=== PATIENT | female | born 1975 | race African-American/Black ===

== ENCOUNTER 2017-11-09 18:11 | Emergency (ER) | payer MEDICARE, MEDICAID ==
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
[2017-11-09] MEDS ORDERED: Ketorolac INJ* 60 MG/2 ML VIAL IM ONE (21:36)
[2017-11-09 21:58] VITALS: BP 112/65
== END 2017-11-09 22:00 | disposition home or self-care (01) ==
LOC: UCEAST 18:11
DX: L29.9 Pruritus, unspecified (principal); L85.3 Xerosis cutis; M54.42 Lumbago with sciatica, left side; R03.0 Elevated blood-pressure reading, without diagnosis of hypertension; Z88.0 Allergy status to penicillin; Z91.040 Latex allergy status; Z72.0 Tobacco use
CPT/HCPCS: 99212; G0463; J1885

== ENCOUNTER 2018-10-04 09:00 | Emergency (ER) | payer MEDICAID, MEDICARE ==
[2018-10-04 09:08] VITALS: BP 153/96
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
== END 2018-10-04 09:28 | disposition home or self-care (01) ==
LOC: ED 09:00
DX: M79.10 Myalgia, unspecified site (principal); G89.29 Other chronic pain; R51 Headache; M54.9 Dorsalgia, unspecified; M54.2 Cervicalgia; Z88.0 Allergy status to penicillin; E11.9 Type 2 diabetes mellitus without complications; Z72.0 Tobacco use
CPT/HCPCS: 99282

== ENCOUNTER 2019-03-04 23:42 | Emergency (ER) | payer MEDICARE, MEDICAID ==
[2019-03-05] MEDS ORDERED: Azithromycin TAB* 250 MG PO ONE (01:34)
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
[2019-03-05] MEDS ORDERED: Ibuprofen TAB* 600 MG PO ONE (01:39)
[2019-03-05 02:11] VITALS: BP 166/102
== END 2019-03-05 02:11 | disposition home or self-care (01) ==
LOC: ED 23:42
DX: J98.8 Other specified respiratory disorders (principal); R51 Headache; Z72.0 Tobacco use; E11.9 Type 2 diabetes mellitus without complications; Z88.0 Allergy status to penicillin
CPT/HCPCS: 99282; A9270-GY

== ENCOUNTER 2019-07-28 15:44 | Emergency (ER) | payer MEDICARE, MEDICAID ==
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
[2019-07-28 17:27] LABS: ABS Basophils 0.1 10^3/ul (0-0.2); ABS Eosinophils 0.2 10^3/ul (0-0.6); ABS Monocytes 0.5 10^3/ul (0-0.8); ABS Neutrophils 4.7 10^3/ul (1.5-7.7); Eosinophil % 2.1 %; Hematocrit 43 % (35-47); Hemoglobin 14.5 g/dL (12.0-16.0); Lymphocyte % 27.2 %; Mean Corpuscular HGB Conc 34 g/dL (31-36); Mean Corpuscular Hemoglobin 31 pg (27-31); Mean Corpuscular Volume 91 fL (80-97); Mean Platelet Volume 8.4 fL (7.4-10.4); Nucleated Red Blood Cells % 0.1; Platelet Count 300 10^3/uL (150-450); Red Blood Count 4.71 10^6 /uL (3.70-4.87); Red Cell Distribution Width 14 % (10-15); White Blood Count 7.5 10^3/uL (3.5-10.8)
[2019-07-28 17:45] LABS: Albumin 4.6 g/dL (3.2-5.2); Albumin/Globulin Ratio 1.3 (1-3); BUN/Creatinine Ratio 13.7 (8-20); Calcium 9.9 mg/dL (8.6-10.3); EGFR African American 103.9 (>60); EGFR Non-African American 85.8 (>60); Globulin 3.5 g/dL (2-4); Total Bilirubin 0.6 mg/dL (0.2-1.0); Total Protein 8.1 g/dL (6.4-8.9)
[2019-07-28 17:47] LABS: INR 1.02 (0.82-1.09)
[2019-07-28] MEDS ORDERED: Lisinopril TAB* 10 MG PO ONE (18:31)
[2019-07-28] MEDS ORDERED: oxyCODONE/Acetamin 5/325 MG* TAB PO ONE (18:31)
[2019-07-28 19:12] VITALS: BP 177/103
== END 2019-07-28 19:09 | disposition home or self-care (01) ==
LOC: ED 15:44
DX: M54.12 Radiculopathy, cervical region (principal); I10 Essential (primary) hypertension; E11.9 Type 2 diabetes mellitus without complications; F31.9 Bipolar disorder, unspecified; Z90.710 Acquired absence of both cervix and uterus; F17.290 Nicotine dependence, other tobacco product, uncomplicated; Z79.84 Long term (current) use of oral hypoglycemic drugs; Z79.899 Other long term (current) drug therapy; Z88.0 Allergy status to penicillin; Z91.040 Latex allergy status
CPT/HCPCS: 36415; 70450; 72125; 80053; 84484; 85025; 85610; 93005; 99283; A9270-GY

== ENCOUNTER 2020-03-11 13:48 | Inpatient (IN) ==
[2020-03-11] MEDS ORDERED: LORazepam 2 mg VIAL 1 ml ONE (13:51)
[2020-03-11] MEDS ORDERED: Lorazepam PYXIS KEY PRN (13:56)
[2020-03-11] MEDS ORDERED: LORazepam 2 mg VIAL 1 ml IM ONE (13:56)
[2020-03-11] MEDS ORDERED: Haloperidol 5 mg/ml SDV IV/IM 5 MG/ML AMP IM ONE (13:56)
[2020-03-11] MEDS ORDERED: diPHENhydraMINE IV 50 MG/ML 1 ml VIAL (BENADRYL) IM ONE (13:56)
[2020-03-11 15:02] LABS: ABS Basophils 0.1 10^3/ul (0-0.2); ABS Eosinophils 0.1 10^3/ul (0-0.6); ABS Lymphocytes 0.9 10^3/ul (1.0-4.8); ABS Monocytes 0.4 10^3/ul (0-0.8); Hematocrit 35 % (35-47); Hemoglobin 11.8 g/dL (12.0-16.0); Lymphocyte % 12.6 %; Mean Corpuscular HGB Conc 34 g/dL (31-36); Mean Corpuscular Hemoglobin 29 pg (27-31); Mean Corpuscular Volume 87 fL (80-97); Mean Platelet Volume 9.9 fL (7.4-10.4); Platelet Count 233 10^3/uL (150-450); Red Blood Count 4.02 10^6 /uL (3.70-4.87); Red Cell Distribution Width 12 % (10-15); White Blood Count 7.2 10^3/uL (3.5-10.8)
[2020-03-11 15:30] LABS: Acetaminophen < 15 mcg/mL; Alcohol, S < 10 mg/dL (<10)
[2020-03-11 15:31] LABS: ALT 40 U/L (7-52); AST 38 U/L (13-39); Albumin 3.9 g/dL (3.2-5.2); Albumin/Globulin Ratio 1.3 (1-3); Alkaline Phosphatase 72 U/L (34-104); Anion Gap 11 mmol/L (2-11); Blood Urea Nitrogen 21 mg/dL (6-24); CO2 Carbon Dioxide 23 mmol/L (22-32); Calcium 9.2 mg/dL (8.6-10.3); Chloride 100 mmol/L (101-111); EGFR African American 48.8 (>60); EGFR Non-African American 40.3 (>60); Globulin 2.9 g/dL (2-4); Glucose 414 mg/dL (70-100); Potassium 3.3 mmol/L (3.5-5.0); Sodium 134 mmol/L (135-145); Total Protein 6.8 g/dL (6.4-8.9); Troponin I 0.01 ng/mL (<0.03)
[2020-03-11 15:41] LABS: Salicylate < 15.00 mg/dL (<30)
[2020-03-11 15:44] LABS: TSH (Thyroid Stimulating Horm) 0.93 mcIU/mL (0.34-5.60)
[2020-03-11] MEDS ORDERED: NS 0.9% 1000 ml BAG 1,000 ML IV ONE (16:13)
[2020-03-11] MEDS ORDERED: Insulin REGULAR 100 unit/ml(*) SUBCUT ONE (16:41)
[2020-03-11 18:50] LABS: Urine Appearance Clear; Urine Bilirubin Negative (Negative); Urine Blood Negative (Negative); Urine Color Yellow; Urine Glucose 1+(50 mg/dL) (Negative); Urine Ketones Trace (Negative); Urine Nitrite Negative (Negative); Urine Protein Negative (Negative); Urine Specific Gravity 1.009 (1.010-1.030); Urine Urobilinogen Negative (Negative)
[2020-03-11 18:57] LABS: Urine Benzodiazepine Screen None Detected (None Detect); Urine Opiates Screen None Detected (None Detect)
[2020-03-12] MEDS ORDERED: chlorproMAZINE 25 MG/ML 2 ML (50 MG) IM ONE (04:39)
[2020-03-12] MEDS ORDERED: Al Hydrox/Mg Hydrox/Simet LIQ 30 ML UDC PO PRN (08:03)
[2020-03-12 10:22] LABS: Cholesterol 145 mg/dL; LDL Cholesterol 90 mg/dL; Triglycerides 61 mg/dL
[2020-03-12] MEDS: Vitamin THERAPEUTIC TAB PO SCH (11:05)
[2020-03-12] MEDS: Insulin LISPRO 100 units/ml(*) SUBCUT SCH ×4 (12:54→22:33)
[2020-03-12] MEDS ORDERED: Insulin LISPRO 100 units/ml(*) SUBCUT ONE (13:39)
[2020-03-12 20:03] LABS: BUN/Creatinine Ratio 15.7 (8-20); Calcium 8.7 mg/dL (8.6-10.3); EGFR African American 61.2 (>60); EGFR Non-African American 50.6 (>60); Potassium 4.3 mmol/L (3.5-5.0)
[2020-03-13] MEDS: Insulin LISPRO 100 units/ml(*) SUBCUT SCH ×4 (07:56→21:45)
[2020-03-13] MEDS: Vitamin THERAPEUTIC TAB PO SCH (07:58)
[2020-03-13] MEDS: CMCS: Meloxicam 7.5 mg TAB (NF) PO SCH (07:59)
[2020-03-13] MEDS ORDERED: Lisinopril/HCTZ 10/12.5 TA(NF) PO SCH (09:00)
[2020-03-13 09:57] LABS: BUN/Creatinine Ratio 14.1 (8-20); Calcium 9.2 mg/dL (8.6-10.3); EGFR African American 86.7 (>60); EGFR Non-African American 71.7 (>60); Potassium 3.9 mmol/L (3.5-5.0)
[2020-03-13] MEDS: LORazepam 1 mg TAB (*) PO PRN (10:06)
[2020-03-13] MEDS ORDERED: Insulin GLARGINE 100 un/ml (*) 10 ml VIAL SUBCUT ONE (10:46)
[2020-03-14] MEDS: Vitamin THERAPEUTIC TAB PO SCH (08:16)
[2020-03-14] MEDS: CMCS: Meloxicam 7.5 mg TAB (NF) PO SCH (08:18)
[2020-03-14] MEDS: Insulin LISPRO 100 units/ml(*) SUBCUT SCH ×4 (08:18→21:42)
[2020-03-14 08:35] LABS: Albumin 3.8 g/dL (3.2-5.2); Albumin/Globulin Ratio 1.4 (1-3); BUN/Creatinine Ratio 18.7 (8-20); Calcium 9.3 mg/dL (8.6-10.3); EGFR African American 80.2 (>60); EGFR Non-African American 66.3 (>60); Globulin 2.8 g/dL (2-4); Potassium 4.7 mmol/L (3.5-5.0); Total Bilirubin 0.4 mg/dL (0.2-1.0); Total Protein 6.6 g/dL (6.4-8.9)
[2020-03-14] MEDS ORDERED: Insulin GLARGINE 100 un/ml (*) 10 ml VIAL SUBCUT SCH (21:00)
[2020-03-15] MEDS: Insulin LISPRO 100 units/ml(*) SUBCUT SCH ×4 (08:03→22:16)
[2020-03-15] MEDS: Vitamin THERAPEUTIC TAB PO SCH (09:15)
[2020-03-15] MEDS: CMCS: Meloxicam 7.5 mg TAB (NF) PO SCH (09:16)
[2020-03-15] MEDS: Insulin GLARGINE 100 un/ml (*) 10 ml VIAL SUBCUT SCH ×2 (10:22→22:13)
[2020-03-15 12:33] LABS: Albumin 4.2 g/dL (3.2-5.2); Calcium 10.1 mg/dL (8.6-10.3); Potassium 4.9 mmol/L (3.5-5.0); Total Bilirubin 0.3 mg/dL (0.2-1.0)
[2020-03-15 12:35] LABS: ABS Basophils 0.1 10^3/ul (0-0.2); ABS Eosinophils 0.1 10^3/ul (0-0.6); ABS Lymphocytes 1.5 10^3/ul (1.0-4.8); ABS Monocytes 0.4 10^3/ul (0-0.8); Hematocrit 40 % (35-47); Hemoglobin 13.3 g/dL (12.0-16.0); Lymphocyte % 19.7 %; Mean Corpuscular HGB Conc 33 g/dL (31-36); Mean Corpuscular Hemoglobin 30 pg (27-31); Mean Corpuscular Volume 89 fL (80-97); Mean Platelet Volume 10.2 fL (7.4-10.4); Nucleated Red Blood Cells % 0.1; Platelet Count 231 10^3/uL (150-450); Red Blood Count 4.48 10^6 /uL (3.70-4.87); Red Cell Distribution Width 13 % (10-15); White Blood Count 7.3 10^3/uL (3.5-10.8)
[2020-03-15 12:39] LABS: Albumin/Globulin Ratio 1.3 (1-3); BUN/Creatinine Ratio 20.2 (8-20); EGFR African American 87.9 (>60); EGFR Non-African American 72.7 (>60); Globulin 3.2 g/dL (2-4); Total Protein 7.4 g/dL (6.4-8.9)
[2020-03-15 14:20] LABS: Hepatitis B Surface Antigen Nonreactive (Nonreactive)
[2020-03-15 14:37] LABS: Hepatitis C Antibody Negative (Negative)
[2020-03-15] MEDS: LORazepam 1 mg TAB (*) PO PRN (15:39)
[2020-03-16] MEDS: Vitamin THERAPEUTIC TAB PO SCH (09:09)
[2020-03-16] MEDS: CMCS: Meloxicam 7.5 mg TAB (NF) PO SCH (09:09)
[2020-03-16] MEDS: Insulin LISPRO 100 units/ml(*) SUBCUT SCH ×4 (09:10→20:35)
[2020-03-16] MEDS: Insulin GLARGINE 100 un/ml (*) 10 ml VIAL SUBCUT SCH ×2 (10:49→20:36)
[2020-03-17] MEDS: CMCS: Meloxicam 7.5 mg TAB (NF) PO SCH (09:27)
[2020-03-17] MEDS: Vitamin THERAPEUTIC TAB PO SCH (09:29)
[2020-03-17] MEDS: Insulin GLARGINE 100 un/ml (*) 10 ml VIAL SUBCUT SCH ×2 (09:31→20:53)
[2020-03-17] MEDS: Insulin LISPRO 100 units/ml(*) SUBCUT SCH ×4 (09:31→20:55)
[2020-03-17] MEDS: Benzocaine/Menthol LOZ MT PRN ×2 (09:33→14:41)
[2020-03-17] MEDS: LORazepam 1 mg TAB (*) PO PRN (14:26)
[2020-03-17] MEDS: Clindamycin 1% TOPICAL(NF) 60 PAD BOX TOPICAL SCH (20:56)
[2020-03-18] MEDS: Benzocaine/Menthol LOZ MT PRN (07:52)
[2020-03-18] MEDS: Vitamin THERAPEUTIC TAB PO SCH (08:37)
[2020-03-18] MEDS: CMCS: Meloxicam 7.5 mg TAB (NF) PO SCH (08:38)
[2020-03-18] MEDS: Insulin LISPRO 100 units/ml(*) SUBCUT SCH ×4 (08:43→20:15)
[2020-03-18] MEDS: Insulin GLARGINE 100 un/ml (*) 10 ml VIAL SUBCUT SCH ×2 (08:44→20:13)
[2020-03-18] MEDS ORDERED: Insulin GLARGINE 100 un/ml (*) 10 ml VIAL SUBCUT SCH (09:00)
[2020-03-18] MEDS ORDERED: Insulin GLARGINE 100 un/ml (*) 10 ml VIAL SUBCUT ONE (09:00)
[2020-03-18] MEDS: Clindamycin 1% TOPICAL(NF) 60 PAD BOX TOPICAL SCH ×2 (09:27→22:03)
[2020-03-18] MEDS: LORazepam 1 mg TAB (*) PO PRN (12:26)
[2020-03-18] MEDS ORDERED: CMCS:Meloxicam 7.5 mg TAB (NF) PO ONE (15:30)
[2020-03-18 16:52] LABS: Albumin 3.4 g/dL (3.2-5.2); Albumin/Globulin Ratio 1.2 (1-3); BUN/Creatinine Ratio 17.3 (8-20); Calcium 8.7 mg/dL (8.6-10.3); EGFR African American 100.2 (>60); EGFR Non-African American 82.8 (>60); Globulin 2.8 g/dL (2-4); Potassium 4.2 mmol/L (3.5-5.0); Total Bilirubin 0.2 mg/dL (0.2-1.0); Total Protein 6.2 g/dL (6.4-8.9)
[2020-03-19] MEDS: Benzocaine/Menthol LOZ MT PRN ×2 (06:35→17:13)
[2020-03-19] MEDS ORDERED: Dextrose 50% Syringe 50 ml 25 GM/50 ML SYRINGE IV PUSH PRN (08:03)
[2020-03-19] MEDS: CMCS:Meloxicam 7.5 mg TAB (NF) PO SCH (08:44)
[2020-03-19] MEDS: Vitamin THERAPEUTIC TAB PO SCH (08:45)
[2020-03-19] MEDS: Insulin GLARGINE 100 un/ml (*) 10 ml VIAL SUBCUT SCH ×2 (08:58→20:28)
[2020-03-19] MEDS: Insulin LISPRO 100 units/ml(*) SUBCUT SCH ×6 (08:58→20:28)
[2020-03-19] MEDS: Clindamycin 1% TOPICAL(NF) 60 PAD BOX TOPICAL SCH ×2 (08:59→20:57)
[2020-03-20] MEDS: Clindamycin 1% TOPICAL(NF) 60 PAD BOX TOPICAL SCH ×2 (07:42→20:40)
[2020-03-20] MEDS: Insulin LISPRO 100 units/ml(*) SUBCUT SCH ×7 (07:53→20:38)
[2020-03-20] MEDS: Benzocaine/Menthol LOZ MT PRN ×4 (07:55→16:56)
[2020-03-20] MEDS: CMCS:Meloxicam 7.5 mg TAB (NF) PO SCH (08:24)
[2020-03-20] MEDS: Vitamin THERAPEUTIC TAB PO SCH (08:25)
[2020-03-20] MEDS: Insulin GLARGINE 100 un/ml (*) 10 ml VIAL SUBCUT SCH ×2 (08:30→20:38)
[2020-03-20] MEDS: LORazepam 1 mg TAB (*) PO PRN (19:01)
[2020-03-21] MEDS: Vitamin THERAPEUTIC TAB PO SCH (07:38)
[2020-03-21] MEDS: Insulin LISPRO 100 units/ml(*) SUBCUT SCH ×7 (07:39→20:28)
[2020-03-21] MEDS: Benzocaine/Menthol LOZ MT PRN ×4 (07:40→17:59)
[2020-03-21] MEDS: Clindamycin 1% TOPICAL(NF) 60 PAD BOX TOPICAL SCH ×2 (07:41→20:31)
[2020-03-21] MEDS: Insulin GLARGINE 100 un/ml (*) 10 ml VIAL SUBCUT SCH ×2 (07:41→20:27)
[2020-03-21] MEDS: CMCS:Meloxicam 7.5 mg TAB (NF) PO SCH (07:41)
[2020-03-22] MEDS: CMCS:Meloxicam 7.5 mg TAB (NF) PO SCH (07:40)
[2020-03-22] MEDS: Vitamin THERAPEUTIC TAB PO SCH (07:40)
[2020-03-22] MEDS: Benzocaine/Menthol LOZ MT PRN ×3 (07:41→16:59)
[2020-03-22] MEDS: Insulin LISPRO 100 units/ml(*) SUBCUT SCH ×7 (10:33→21:49)
[2020-03-22] MEDS: Clindamycin 1% TOPICAL(NF) 60 PAD BOX TOPICAL SCH ×2 (10:34→21:53)
[2020-03-22] MEDS: Insulin GLARGINE 100 un/ml (*) 10 ml VIAL SUBCUT SCH ×2 (10:34→21:49)
[2020-03-22] MEDS: LORazepam 1 mg TAB (*) PO PRN (12:44)
[2020-03-23] MEDS: CMCS:Meloxicam 7.5 mg TAB (NF) PO SCH (07:39)
[2020-03-23] MEDS: Vitamin THERAPEUTIC TAB PO SCH (07:40)
[2020-03-23] MEDS: LORazepam 1 mg TAB (*) PO PRN (07:40)
[2020-03-23] MEDS: Benzocaine/Menthol LOZ MT PRN ×2 (07:42→12:07)
[2020-03-23] MEDS: Insulin GLARGINE 100 un/ml (*) 10 ml VIAL SUBCUT SCH (07:57)
[2020-03-23] MEDS: Insulin LISPRO 100 units/ml(*) SUBCUT SCH ×6 (07:58→18:50)
[2020-03-23] MEDS: Clindamycin 1% TOPICAL(NF) 60 PAD BOX TOPICAL SCH (13:23)
[2020-03-24] MEDS: CLINDAMYCIN 1% TOPICAL SCH ×4 (01:38→22:22)
[2020-03-24] MEDS: Insulin GLARGINE 100 un/ml (*) 10 ml VIAL SUBCUT SCH ×3 (01:39→22:23)
[2020-03-24] MEDS: Insulin LISPRO 100 units/ml(*) SUBCUT SCH ×8 (01:39→22:31)
[2020-03-24] MEDS: Benzocaine/Menthol LOZ MT PRN ×4 (06:10→18:36)
[2020-03-24] MEDS: CMCS:Meloxicam 7.5 mg TAB (NF) PO SCH (09:34)
[2020-03-24] MEDS: Vitamin THERAPEUTIC TAB PO SCH (09:34)
[2020-03-24] MEDS ORDERED: CMC:Minocycline 50 mg CAP (NF) PO SCH (16:00)
[2020-03-24] MEDS: Lurasidone 60 mg TAB (*) PO SCH (17:52)
[2020-03-24] MEDS: SITAGLIPTIN 100 MG PO SCH (17:54)
[2020-03-25] MEDS: CLINDAMYCIN 1% TOPICAL SCH ×3 (06:47→20:40)
[2020-03-25] MEDS: Vitamin THERAPEUTIC TAB PO SCH (07:53)
[2020-03-25] MEDS: CMC:Minocycline 50 mg CAP (NF) PO SCH (07:57)
[2020-03-25] MEDS: CMCS:Meloxicam 7.5 mg TAB (NF) PO SCH (07:58)
[2020-03-25] MEDS: SITAGLIPTIN 100 MG PO SCH (07:58)
[2020-03-25] MEDS: Insulin LISPRO 100 units/ml(*) SUBCUT SCH ×7 (08:30→20:37)
[2020-03-25] MEDS: Insulin GLARGINE 100 un/ml (*) 10 ml VIAL SUBCUT SCH ×2 (08:31→20:38)
[2020-03-25] MEDS: Benzocaine/Menthol LOZ MT PRN ×2 (10:39→13:02)
[2020-03-25] MEDS: Lurasidone 60 mg TAB (*) PO SCH (17:50)
[2020-03-26] MEDS: Benzocaine/Menthol LOZ MT PRN ×3 (07:56→18:25)
[2020-03-26] MEDS: CMCS:Meloxicam 7.5 mg TAB (NF) PO SCH (08:40)
[2020-03-26] MEDS: CMC:Minocycline 50 mg CAP (NF) PO SCH (08:40)
[2020-03-26] MEDS: Vitamin THERAPEUTIC TAB PO SCH (08:41)
[2020-03-26] MEDS: CLINDAMYCIN 1% TOPICAL SCH ×2 (08:43→21:55)
[2020-03-26] MEDS: Insulin LISPRO 100 units/ml(*) SUBCUT SCH ×7 (08:43→20:48)
[2020-03-26] MEDS: SITAGLIPTIN 100 MG PO SCH (08:46)
[2020-03-26] MEDS: Insulin GLARGINE 100 un/ml (*) 10 ml VIAL SUBCUT SCH ×2 (08:46→20:47)
[2020-03-26] MEDS ORDERED: Lurasidone 120 mg TAB (*) PO SCH (17:00)
[2020-03-26] MEDS ORDERED: Lurasidone 80 mg TAB (*) PO SCH (17:00)
[2020-03-27] MEDS: Vitamin THERAPEUTIC TAB PO SCH (09:00)
[2020-03-27] MEDS: CMCS:Meloxicam 7.5 mg TAB (NF) PO SCH (09:00)
[2020-03-27] MEDS: SITAGLIPTIN 100 MG PO SCH (09:01)
[2020-03-27] MEDS: CMC:Minocycline 50 mg CAP (NF) PO SCH (09:02)
[2020-03-27] MEDS: Insulin LISPRO 100 units/ml(*) SUBCUT SCH ×7 (09:04→20:13)
[2020-03-27] MEDS: Insulin GLARGINE 100 un/ml (*) 10 ml VIAL SUBCUT SCH ×2 (09:05→20:14)
[2020-03-27] MEDS: Benzocaine/Menthol LOZ MT PRN (09:37)
[2020-03-27] MEDS: CLINDAMYCIN 1% TOPICAL SCH ×2 (11:16→21:54)
[2020-03-27] MEDS: Lurasidone 120 mg TAB (*) PO SCH (17:20)
[2020-03-27] MEDS: LORazepam 1 mg TAB (*) PO PRN (18:34)
[2020-03-28] MEDS: Benzocaine/Menthol LOZ MT PRN (07:46)
[2020-03-28] MEDS: CMCS:Meloxicam 7.5 mg TAB (NF) PO SCH (10:05)
[2020-03-28] MEDS: SITAGLIPTIN 100 MG PO SCH (10:06)
[2020-03-28] MEDS: CMC:Minocycline 50 mg CAP (NF) PO SCH (10:06)
[2020-03-28] MEDS: Vitamin THERAPEUTIC TAB PO SCH (10:06)
[2020-03-28] MEDS: Insulin LISPRO 100 units/ml(*) SUBCUT SCH ×7 (10:08→20:49)
[2020-03-28] MEDS: Insulin GLARGINE 100 un/ml (*) 10 ml VIAL SUBCUT SCH ×2 (10:08→20:48)
[2020-03-28] MEDS: CLINDAMYCIN 1% TOPICAL SCH ×2 (14:59→19:55)
[2020-03-28] MEDS: Lurasidone 120 mg TAB (*) PO SCH (17:25)
[2020-03-29] MEDS: Insulin LISPRO 100 units/ml(*) SUBCUT SCH ×2 (07:47→08:34)
[2020-03-29] MEDS: Insulin GLARGINE 100 un/ml (*) 10 ml VIAL SUBCUT SCH (08:33)
[2020-03-29] MEDS: Vitamin THERAPEUTIC TAB PO SCH (08:36)
[2020-03-29] MEDS: Benzocaine/Menthol LOZ MT PRN (08:41)
[2020-03-29] MEDS: CMCS:Meloxicam 7.5 mg TAB (NF) PO SCH (08:46)
[2020-03-29] MEDS: CMC:Minocycline 50 mg CAP (NF) PO SCH (08:46)
[2020-03-29] MEDS: SITAGLIPTIN 100 MG PO SCH (08:47)
[2020-03-29] MEDS: CLINDAMYCIN 1% TOPICAL SCH (08:47)
[2020-03-29 09:16] VITALS: BP 123/69
== END 2020-03-29 11:20 | disposition home or self-care (01) | DRG 885 ==
LOC: ED 13:48 → BSU 03-12 07:08
PROVIDERS: ADMIT Psychiatry & Neurology Psychiatry; ATTEND Internal Medicine

== ENCOUNTER 2021-02-04 11:48 | Inpatient (IN) ==
[2021-02-04] MEDS ORDERED: diPHENhydraMINE IV 50 MG/ML 1 ml VIAL (BENADRYL) IM ONE (12:34)
[2021-02-04] MEDS ORDERED: LORazepam 2 mg VIAL 1 ml IM ONE (12:34)
[2021-02-04] MEDS ORDERED: Haloperidol 5 mg/ml SDV IV/IM 5 MG/ML AMP IM ONE (12:34)
[2021-02-04] MEDS ORDERED: Lorazepam PYXIS KEY PRN (12:34)
[2021-02-04] MEDS ORDERED: LORazepam 2 mg VIAL 1 ml ONE ×2 (12:36→14:40)
[2021-02-04 13:05] LABS: Urine Benzodiazepine Screen None Detected (None Detect); Urine Cannabinoids Screen None Detected (None Detect); Urine Opiates Screen None Detected (None Detect)
[2021-02-04 13:06] LABS: Urine Appearance Cloudy; Urine Bilirubin Negative (Negative); Urine Blood 1+ (Negative); Urine Color Straw; Urine Glucose 3+(>=500 mg/dL) (Negative); Urine Ketones 1+ (Negative); Urine Nitrite Negative (Negative); Urine Protein Negative (Negative); Urine Specific Gravity 1.024 (1.002-1.030); Urine Urobilinogen Negative (Negative)
[2021-02-04 13:11] LABS: Urine Bacteria Absent (Absent); Urine Red Blood Cell 1+(3-5/hpf) (Absent); Urine Squamous Epithelial Cell Present (Absent); Urine White Blood Cell Trace(0-5/hpf) (Absent)
[2021-02-04] MEDS ORDERED: Haloperidol 5 mg/ml SDV IV/IM 5 MG/ML AMP ONE (14:40)
[2021-02-04] MEDS ORDERED: diPHENhydraMINE IV 50 MG/ML 1 ml VIAL (BENADRYL) ONE (14:40)
[2021-02-04 14:57] LABS: ABS Basophils 0.1 10^3/ul (0-0.2); ABS Lymphocytes 1.4 10^3/ul (1.0-4.8); ABS Monocytes 0.4 10^3/ul (0-0.8); ABS Neutrophils 5.5 10^3/ul (1.5-7.7); Eosinophil % 0.3 %; Hematocrit 35 % (35-47); Hemoglobin 11.5 g/dL (12.0-16.0); Lymphocyte % 18.5 %; Mean Corpuscular HGB Conc 33 g/dL (31-36); Mean Corpuscular Hemoglobin 28 pg (27-31); Mean Corpuscular Volume 87 fL (80-97); Mean Platelet Volume 10.4 fL (7.4-10.4); Platelet Count 309 10^3/uL (150-450); Red Blood Count 4.04 10^6 /uL (3.70-4.87); Red Cell Distribution Width 15 % (10-15); White Blood Count 7.4 10^3/uL (3.5-10.8)
[2021-02-04 15:19] LABS: ALT 24 U/L (7-52); AST 28 U/L (13-39); Albumin 4.1 g/dL (3.2-5.2); Albumin/Globulin Ratio 1.3 (1-3); Alkaline Phosphatase 83 U/L (34-104); Blood Urea Nitrogen 20 mg/dL (6-24); CO2 Carbon Dioxide 23 mmol/L (22-32); Calcium 9.1 mg/dL (8.6-10.3); Chloride 89 mmol/L (101-111); EGFR African American 63.1 (>60); EGFR Non-African American 52.1 (>60); Globulin 3.1 g/dL (2-4); Sodium 122 mmol/L (135-145); Total Protein 7.2 g/dL (6.4-8.9)
[2021-02-04 15:25] LABS: Acetaminophen < 15 mcg/mL; Alcohol, S < 10 mg/dL (<10); Salicylate < 2.50 mg/dL (<30)
[2021-02-04 15:30] LABS: Anion Gap 10 mmol/L (2-11); Glucose 677 mg/dL (70-100); Potassium 5.2 mmol/L (3.5-5.0)
[2021-02-04] MEDS ORDERED: NS 0.9% 1000 ml BAG 1,000 ML IV ONE ×2 (15:32→16:11)
[2021-02-04 15:38] LABS: TSH Ultra Thyroid Stim Horm 1.82 mcIU/mL (0.34-5.60)
[2021-02-04 16:21] LABS: Albumin 4.2 g/dL (3.2-5.2); Albumin/Globulin Ratio 1.6 (1-3); Calcium 9.4 mg/dL (8.6-10.3); EGFR African American 68.7 (>60); EGFR Non-African American 56.8 (>60); Globulin 2.7 g/dL (2-4); Potassium 4.9 mmol/L (3.5-5.0); Total Bilirubin 0.5 mg/dL (0.2-1.0); Total Protein 6.9 g/dL (6.4-8.9)
[2021-02-05] MEDS ORDERED: Dextrose 50% Syringe 50 ml 25 GM/50 ML SYRINGE IV PUSH PRN (06:07)
[2021-02-05] MEDS: Vitamin THERAPEUTIC TAB PO SCH (11:41)
[2021-02-05] MEDS ORDERED: Benzocaine/Menthol LOZ ONE (13:49)
[2021-02-05 17:37] LABS: Glucose Confirmatory 413 mg/dL (70-100)
[2021-02-05] MEDS: Lurasidone 120 mg TAB PO SCH (17:51)
[2021-02-05] MEDS: oxyCODONE/Acetamin 5/325 mg TAB PO PRN (20:01)
[2021-02-05] MEDS: Al Hydrox/Mg Hydrox/Simet LIQ 30 ML UDC PO PRN (20:03)
[2021-02-05] MEDS: Benzocaine/Menthol LOZ PO PRN (20:05)
[2021-02-05] MEDS: diphenhydraMINE PO* 50 MG Q6H PRN PO (23:36)
[2021-02-06] MEDS: oxyCODONE/Acetamin 5/325 mg TAB PO PRN ×2 (04:31→12:27)
[2021-02-06] MEDS: Benzocaine/Menthol LOZ PO PRN ×3 (08:12→20:25)
[2021-02-06] MEDS: Triamcinolone 0.025% OINT 15 GM TUBE TOPICAL SCH (08:40)
[2021-02-06 08:41] LABS: HDL Cholesterol 48.2 mg/dL
[2021-02-06] MEDS: Vitamin THERAPEUTIC TAB PO SCH (08:41)
[2021-02-06] MEDS: CMC:SitaGLIPtin 100 mg TAB (NF) PO SCH (08:41)
[2021-02-06] MEDS ORDERED: Pneumococcal Vac 23-Polyvalent IM ONE (09:00)
[2021-02-06] MEDS: Lurasidone 120 mg TAB PO SCH (18:48)
[2021-02-06] MEDS: Miconazole VAGINAL CREAM 2% 45 GM VAGINAL SCH (22:07)
[2021-02-07] MEDS: oxyCODONE/Acetamin 5/325 mg TAB PO PRN ×4 (06:46→22:38)
[2021-02-07] MEDS: Benzocaine/Menthol LOZ PO PRN ×4 (06:47→18:57)
[2021-02-07] MEDS: Vitamin THERAPEUTIC TAB PO SCH (07:46)
[2021-02-07] MEDS: CMC:SitaGLIPtin 100 mg TAB (NF) PO SCH (07:47)
[2021-02-07] MEDS: Triamcinolone 0.025% OINT 15 GM TUBE TOPICAL SCH (07:49)
[2021-02-07] MEDS: Miconazole VAGINAL CREAM 2% 45 GM VAGINAL SCH (07:52)
[2021-02-07 10:53] LABS: Albumin 3.9 g/dL (3.2-5.2); Calcium 9.6 mg/dL (8.6-10.3); EGFR Non-African American 76.9 (>60); Potassium 4.8 mmol/L (3.5-5.0); Total Protein 7.2 g/dL (6.4-8.9)
[2021-02-07 10:54] LABS: Albumin/Globulin Ratio 1.2 (1-3); Globulin 3.3 g/dL (2-4); Total Bilirubin 0.3 mg/dL (0.2-1.0)
[2021-02-07] MEDS: Lurasidone 120 mg TAB PO SCH (17:53)
[2021-02-08] MEDS: Meloxicam 7.5 mg TAB (NF) PO PRN (03:37)
[2021-02-08] MEDS: Al Hydrox/Mg Hydrox/Simet LIQ 30 ML UDC PO PRN ×2 (03:38→23:42)
[2021-02-08] MEDS: Benzocaine/Menthol LOZ PO PRN ×2 (03:43→14:48)
[2021-02-08] MEDS: oxyCODONE/Acetamin 5/325 mg TAB PO PRN ×3 (07:24→20:17)
[2021-02-08] MEDS: Miconazole VAGINAL CREAM 2% 45 GM VAGINAL SCH (07:26)
[2021-02-08] MEDS: CMC:SitaGLIPtin 100 mg TAB (NF) PO SCH (08:37)
[2021-02-08 09:14] LABS: Glucose Confirmatory 492 mg/dL (70-100)
[2021-02-08] MEDS: Vitamin THERAPEUTIC TAB PO SCH (10:41)
[2021-02-08] MEDS: Triamcinolone 0.025% OINT 15 GM TUBE TOPICAL SCH (12:52)
[2021-02-08] MEDS: Lurasidone 120 mg TAB PO SCH (17:43)
[2021-02-09] MEDS: Benzocaine/Menthol LOZ PO PRN ×3 (03:45→12:45)
[2021-02-09] MEDS: oxyCODONE/Acetamin 5/325 mg TAB PO PRN ×5 (03:45→21:57)
[2021-02-09] MEDS: Miconazole VAGINAL CREAM 2% 45 GM VAGINAL SCH ×2 (06:54→09:07)
[2021-02-09] MEDS: Triamcinolone 0.025% OINT 15 GM TUBE TOPICAL SCH (09:06)
[2021-02-09] MEDS: Vitamin THERAPEUTIC TAB PO SCH (09:06)
[2021-02-09] MEDS: CMC:SitaGLIPtin 100 mg TAB (NF) PO SCH (09:39)
[2021-02-09] MEDS: Al Hydrox/Mg Hydrox/Simet LIQ 30 ML UDC PO PRN (09:41)
[2021-02-09] MEDS: Meloxicam 7.5 mg TAB (NF) PO PRN (12:45)
[2021-02-09] MEDS: Lurasidone 120 mg TAB PO SCH (17:42)
[2021-02-10] MEDS: oxyCODONE/Acetamin 5/325 mg TAB PO PRN ×4 (03:01→17:52)
[2021-02-10 04:04] LABS: Glucose Confirmatory 487 mg/dL (70-100)
[2021-02-10] MEDS: Al Hydrox/Mg Hydrox/Simet LIQ 30 ML UDC PO PRN ×2 (05:57→21:23)
[2021-02-10] MEDS: Benzocaine/Menthol LOZ PO PRN ×2 (05:58→18:50)
[2021-02-10] MEDS: Triamcinolone 0.025% OINT 15 GM TUBE TOPICAL SCH ×2 (06:42→14:03)
[2021-02-10] MEDS: Meloxicam 7.5 mg TAB (NF) PO PRN (06:42)
[2021-02-10] MEDS: CMC:SitaGLIPtin 100 mg TAB (NF) PO SCH (07:56)
[2021-02-10] MEDS: Vitamin THERAPEUTIC TAB PO SCH (07:57)
[2021-02-10] MEDS: diphenhydraMINE PO* 50 MG Q6H PRN PO (07:57)
[2021-02-10] MEDS: Miconazole VAGINAL CREAM 2% 45 GM VAGINAL SCH (14:03)
[2021-02-10] MEDS: Dextran 70/Hypromellose Tears Eye Drops 15 ml BTL (for Artificials Tears) BOTH EYES PRN ×2 (15:45→18:48)
[2021-02-10] MEDS: Lurasidone 120 mg TAB PO SCH (17:50)
[2021-02-11] MEDS: oxyCODONE/Acetamin 5/325 mg TAB PO PRN (02:49)
[2021-02-11] MEDS: Benzocaine/Menthol LOZ PO PRN (02:51)
[2021-02-11] MEDS: Meloxicam 7.5 mg TAB (NF) PO PRN (06:02)
[2021-02-11] MEDS: Dextran 70/Hypromellose Tears Eye Drops 15 ml BTL (for Artificials Tears) BOTH EYES PRN ×2 (06:28→08:23)
[2021-02-11 08:23] VITALS: BP 116/70
[2021-02-11] MEDS: Vitamin THERAPEUTIC TAB PO SCH (08:23)
[2021-02-11] MEDS: CMC:SitaGLIPtin 100 mg TAB (NF) PO SCH (08:26)
[2021-02-11] MEDS: Miconazole VAGINAL CREAM 2% 45 GM VAGINAL SCH (08:27)
[2021-02-11] MEDS: Triamcinolone 0.025% OINT 15 GM TUBE TOPICAL SCH (08:28)
== END 2021-02-11 11:50 | disposition home or self-care (01) | DRG 882 ==
LOC: ED 11:48 → BSU 02-05 05:36
PROVIDERS: ADMIT Psychiatry & Neurology Addiction Psychiatry; ATTEND Psychiatry & Neurology Psychiatry

== ENCOUNTER 2021-09-08 12:59 | Inpatient (IN) ==
[2021-09-08 14:54] LABS: Urine Appearance Clear; Urine Bilirubin Negative (Negative); Urine Blood 2+ (Negative); Urine Color Yellow; Urine Glucose 3+(>=500 mg/dL) (Negative); Urine Ketones 1+ (Negative); Urine Nitrite Negative (Negative); Urine Protein 1+(30 mg/dL) (Negative); Urine Specific Gravity 1.023 (1.002-1.030); Urine Urobilinogen Negative (Negative)
[2021-09-08 14:57] LABS: Urine Bacteria Absent (Absent); Urine Red Blood Cell 3+(>10/hpf) (Absent); Urine Squamous Epithelial Cell Present (Absent); Urine White Blood Cell Absent (Absent)
[2021-09-08 15:34] LABS: Urine Benzodiazepine Screen None Detected (None Detect); Urine Cannabinoids Screen Presumptive Positive (None Detect); Urine Opiates Screen None Detected (None Detect)
[2021-09-08 15:46] LABS: ABS Basophils 0.1 10^3/ul (0-0.2); ABS Eosinophils 0.1 10^3/ul (0-0.6); ABS Lymphocytes 1.8 10^3/ul (1.0-4.8); ABS Monocytes 0.6 10^3/ul (0-0.8); ABS Neutrophils 9.3 10^3/ul (1.5-7.7); Eosinophil % 0.5 %; Hematocrit 35 % (35-47); Hemoglobin 11.6 g/dL (12.0-16.0); Lymphocyte % 15.5 %; Mean Corpuscular HGB Conc 33 g/dL (31-36); Mean Corpuscular Hemoglobin 29 pg (27-31); Mean Corpuscular Volume 86 fL (80-97); Platelet Count 420 10^3/uL (150-450); Red Blood Count 4.06 10^6 /uL (3.70-4.87); Red Cell Distribution Width 15 % (10-15); White Blood Count 11.9 10^3/uL (3.5-10.8)
[2021-09-08 16:08] LABS: ALT 28 U/L (7-52); AST 30 U/L (13-39); Albumin 4.6 g/dL (3.2-5.2); Albumin/Globulin Ratio 1.4 (1-3); Alkaline Phosphatase 66 U/L (35-149); Anion Gap 8 mmol/L (2-11); Blood Urea Nitrogen 9 mg/dL (6-24); CO2 Carbon Dioxide 27 mmol/L (22-32); Calcium 9.7 mg/dL (8.6-10.3); Chloride 98 mmol/L (101-111); Globulin 3.3 g/dL (2-4); Glucose 337 mg/dL (70-100); Sodium 133 mmol/L (135-145); Total Protein 7.9 g/dL (6.4-8.9); eGFR CKD-EPI 88.2 (>60)
[2021-09-08 16:09] LABS: Acetaminophen < 15 mcg/mL; Alcohol, S < 13 mg/dL (<13); Salicylate < 2.50 mg/dL (<30)
[2021-09-08 16:12] LABS: HCG Pregnancy 2.06 mIU/mL
[2021-09-08 16:24] LABS: TSH Ultra Thyroid Stim Horm 0.86 mcIU/mL (0.34-5.60)
[2021-09-08] MEDS ORDERED: Haloperidol 5 mg/ml SDV IV/IM 5 MG/ML AMP IM ONE (21:43)
[2021-09-08] MEDS ORDERED: LORazepam 2 mg VIAL 1 ml IM ONE (21:43)
[2021-09-08] MEDS ORDERED: diPHENhydraMINE IV 50 MG/ML 1 ml VIAL (BENADRYL) IM ONE (21:43)
[2021-09-08] MEDS ORDERED: Lorazepam PYXIS KEY PRN (21:43)
[2021-09-09] MEDS ORDERED: Polymyx/Trimethoprim OPTH.SOL 1 BTL BOTH EYES ONE (10:41)
[2021-09-09] MEDS ORDERED: Polymyx/Trimethoprim OPTH.SOL 1 BTL ONE (10:42)
[2021-09-09 11:55] LABS: Rapid COVID-19 Molecular Undetected (Undetected)
[2021-09-09] MEDS: Erythromycin OPTH OINT APPLIC OINT BOTH EYES SCH ×2 (15:49→19:58)
[2021-09-09] MEDS: Ammonium Lactate 12% 1 APPLIC TUBE TOPICAL SCH ×2 (17:05→20:09)
[2021-09-09] MEDS: Triamcinolone 0.025% OINT 15 GM TUBE TOPICAL SCH (17:05)
[2021-09-10] MEDS: Dextran 70/Hypromellose Tears Eye Drops 15 ml BTL (for Artificials Tears) BOTH EYES PRN ×2 (02:35→06:02)
[2021-09-10] MEDS: Ammonium Lactate 12% 1 APPLIC TUBE TOPICAL SCH ×2 (08:49→21:28)
[2021-09-10] MEDS: Erythromycin OPTH OINT APPLIC OINT BOTH EYES SCH ×3 (08:50→21:28)
[2021-09-10] MEDS: CMCS:Minocycline 50 mg CAP (NF) PO SCH (08:52)
[2021-09-10] MEDS: Meloxicam 7.5 mg TAB (NF) PO SCH (08:53)
[2021-09-10] MEDS: CMCS:SitaGLIPtin 100 mg TAB (NF) PO SCH (08:54)
[2021-09-10] MEDS: Triamcinolone 0.025% OINT 15 GM TUBE TOPICAL SCH (08:57)
[2021-09-11] MEDS: Dextran 70/Hypromellose Tears Eye Drops 15 ml BTL (for Artificials Tears) BOTH EYES PRN ×2 (00:22→16:26)
[2021-09-11] MEDS ORDERED: Benztropine 2 mg AMP 1 MG/ML 2 ml AMP IM ONE (00:28)
[2021-09-11] MEDS: CMCS:SitaGLIPtin 100 mg TAB (NF) PO SCH (09:35)
[2021-09-11] MEDS: Meloxicam 7.5 mg TAB (NF) PO SCH (09:36)
[2021-09-11] MEDS: CMCS:Minocycline 50 mg CAP (NF) PO SCH (09:38)
[2021-09-11] MEDS: Ammonium Lactate 12% 1 APPLIC TUBE TOPICAL SCH ×2 (09:54→22:24)
[2021-09-11] MEDS: Erythromycin OPTH OINT APPLIC OINT BOTH EYES SCH ×4 (09:54→22:28)
[2021-09-11] MEDS: Triamcinolone 0.025% OINT 15 GM TUBE TOPICAL SCH (09:54)
[2021-09-11] MEDS ORDERED: Sulfamethox/Trimethoprim DS TAB 800/160 mg PO SCH (21:00)
[2021-09-12] MEDS: Meloxicam 7.5 mg TAB (NF) PO SCH (07:43)
[2021-09-12] MEDS: Dextran 70/Hypromellose Tears Eye Drops 15 ml BTL (for Artificials Tears) BOTH EYES PRN (07:45)
[2021-09-12] MEDS: Erythromycin OPTH OINT APPLIC OINT BOTH EYES SCH ×3 (07:46→22:00)
[2021-09-12 08:07] LABS: ABS Basophils 0.1 10^3/ul (0-0.2); ABS Eosinophils 0.2 10^3/ul (0-0.6); ABS Lymphocytes 1.7 10^3/ul (1.0-4.8); ABS Monocytes 0.7 10^3/ul (0-0.8); ABS Neutrophils 4.8 10^3/ul (1.5-7.7); Eosinophil % 2.3 %; Hematocrit 34 % (35-47); Hemoglobin 11.4 g/dL (12.0-16.0); Lymphocyte % 23.3 %; Mean Corpuscular HGB Conc 34 g/dL (31-36); Mean Corpuscular Hemoglobin 29 pg (27-31); Mean Corpuscular Volume 86 fL (80-97); Platelet Count 384 10^3/uL (150-450); Red Blood Count 3.89 10^6 /uL (3.70-4.87); Red Cell Distribution Width 15 % (10-15); White Blood Count 7.4 10^3/uL (3.5-10.8)
[2021-09-12 08:29] LABS: Albumin 4.3 g/dL (3.2-5.2); Albumin/Globulin Ratio 1.5 (1-3); Calcium 10.2 mg/dL (8.6-10.3); Globulin 2.8 g/dL (2-4); Potassium 4.9 mmol/L (3.5-5.0); Total Bilirubin 0.4 mg/dL (0.2-1.0); Total Protein 7.1 g/dL (6.4-8.9); eGFR CKD-EPI 67.1 (>60)
[2021-09-12] MEDS ORDERED: Dextrose 50% Syringe 50 ml 25 GM/50 ML SYRINGE IV PUSH PRN (08:37)
[2021-09-12] MEDS ORDERED: cefTRIAXone VIAL 1,000 MG VIAL IM SCH (09:00)
[2021-09-12] MEDS: CMCS:SitaGLIPtin 100 mg TAB (NF) PO SCH (09:10)
[2021-09-12] MEDS: Triamcinolone 0.025% OINT 15 GM TUBE TOPICAL SCH (09:12)
[2021-09-12] MEDS: cefTRIAXone VIAL 1,000 MG VIAL IM SCH (09:38)
[2021-09-12] MEDS: Lidocaine 1% MPF 5 ML VIAL SCH (09:38)
[2021-09-12] MEDS: CMCS:Minocycline 50 mg CAP (NF) PO SCH (09:42)
[2021-09-12] MEDS: Ammonium Lactate 12% 1 APPLIC TUBE TOPICAL SCH ×3 (14:44→23:31)
[2021-09-12] MEDS ORDERED: Lactated Ringers 1000 ml BAG 1,000 ML IV ONE (15:06)
[2021-09-12 20:55] LABS: Urine Appearance Cloudy; Urine Bilirubin Negative (Negative); Urine Blood 2+ (Negative); Urine Color Yellow; Urine Glucose Negative (Negative); Urine Ketones Negative (Negative); Urine Nitrite Negative (Negative); Urine Protein Negative (Negative); Urine Specific Gravity 1.008 (1.002-1.030); Urine Urobilinogen Negative (Negative)
[2021-09-12] MEDS ORDERED: Insulin GLARGINE 100 un/ml 10 ml VIAL SUBCUT SCH (21:00)
[2021-09-12 21:16] LABS: Urine Bacteria 1+ (Absent); Urine Red Blood Cell 1+(3-5/hpf) (Absent); Urine Squamous Epithelial Cell Present (Absent); Urine White Blood Cell Trace(0-5/hpf) (Absent); Urine Yeast Present (Absent)
[2021-09-12] MEDS: Senna TAB 8.6 mg TAB PO SCH (21:34)
[2021-09-13 06:43] LABS: ABS Basophils 0.1 10^3/ul (0-0.2); ABS Eosinophils 0.2 10^3/ul (0-0.6); ABS Lymphocytes 1.2 10^3/ul (1.0-4.8); ABS Monocytes 0.7 10^3/ul (0-0.8); ABS Neutrophils 4.7 10^3/ul (1.5-7.7); Eosinophil % 3.4 %; Hematocrit 33 % (35-47); Lymphocyte % 17.1 %; Mean Corpuscular HGB Conc 34 g/dL (31-36); Mean Corpuscular Hemoglobin 29 pg (27-31); Mean Corpuscular Volume 88 fL (80-97); Mean Platelet Volume 8.7 fL (7.4-10.4); Platelet Count 335 10^3/uL (150-450); Red Blood Count 3.74 10^6 /uL (3.70-4.87); Red Cell Distribution Width 15 % (10-15); White Blood Count 6.8 10^3/uL (3.5-10.8)
[2021-09-13 07:14] LABS: Calcium 10.1 mg/dL (8.6-10.3); Potassium 4.8 mmol/L (3.5-5.0); eGFR CKD-EPI 47.2 (>60)
[2021-09-13] MEDS: Erythromycin OPTH OINT APPLIC OINT BOTH EYES SCH ×3 (07:53→21:03)
[2021-09-13] MEDS: Dextran 70/Hypromellose Tears Eye Drops 15 ml BTL (for Artificials Tears) BOTH EYES PRN ×2 (07:53→13:20)
[2021-09-13] MEDS: Meloxicam 7.5 mg TAB (NF) PO SCH (07:58)
[2021-09-13] MEDS: cefTRIAXone VIAL 1,000 MG VIAL IM SCH (08:00)
[2021-09-13] MEDS: Triamcinolone 0.025% OINT 15 GM TUBE TOPICAL SCH (08:02)
[2021-09-13] MEDS: Ammonium Lactate 12% 1 APPLIC TUBE TOPICAL SCH ×2 (08:03→21:03)
[2021-09-13] MEDS: CMCS:SitaGLIPtin 100 mg TAB (NF) PO SCH (08:05)
[2021-09-13] MEDS: CMCS:Minocycline 50 mg CAP (NF) PO SCH (08:05)
[2021-09-13] MEDS: Lidocaine 1% MPF 5 ML VIAL SCH (09:26)
[2021-09-13] MEDS ORDERED: Lactated Ringers 1000 ml BAG 1,000 ML IV ONE (10:16)
[2021-09-13] MEDS: Al Hydrox/Mg Hydrox/Simet LIQ 30 ML UDC PO PRN (13:12)
[2021-09-13] MEDS: Senna TAB 8.6 mg TAB PO SCH (21:03)
[2021-09-13] MEDS: Insulin GLARGINE 100 un/ml 10 ml VIAL SUBCUT SCH (21:42)
[2021-09-14] MEDS: CMCS:Minocycline 50 mg CAP (NF) PO SCH (08:46)
[2021-09-14] MEDS: Erythromycin OPTH OINT APPLIC OINT BOTH EYES SCH ×3 (08:47→21:50)
[2021-09-14] MEDS: Meloxicam 7.5 mg TAB (NF) PO SCH (08:48)
[2021-09-14] MEDS: Triamcinolone 0.025% OINT 15 GM TUBE TOPICAL SCH (08:50)
[2021-09-14] MEDS: Ammonium Lactate 12% 1 APPLIC TUBE TOPICAL SCH ×2 (08:52→21:57)
[2021-09-14] MEDS: Dextran 70/Hypromellose Tears Eye Drops 15 ml BTL (for Artificials Tears) BOTH EYES PRN (09:37)
[2021-09-14] MEDS: Lidocaine 1% MPF 5 ML VIAL SCH (10:33)
[2021-09-14] MEDS: cefTRIAXone VIAL 1,000 MG VIAL IM SCH (10:33)
[2021-09-14 17:39] LABS: Calcium 9.9 mg/dL (8.6-10.3); Potassium 4.8 mmol/L (3.5-5.0); eGFR CKD-EPI 52.7 (>60)
[2021-09-14] MEDS: Al Hydrox/Mg Hydrox/Simet LIQ 30 ML UDC PO PRN (19:45)
[2021-09-14] MEDS: Benzocaine/Menthol LOZ PO PRN (19:45)
[2021-09-14] MEDS: Insulin GLARGINE 100 un/ml 10 ml VIAL SUBCUT SCH (21:48)
[2021-09-14] MEDS: Senna TAB 8.6 mg TAB PO SCH (21:51)
[2021-09-15] MEDS: Meloxicam 7.5 mg TAB (NF) PO SCH (08:59)
[2021-09-15] MEDS: CMCS:Minocycline 50 mg CAP (NF) PO SCH (08:59)
[2021-09-15] MEDS: Erythromycin OPTH OINT APPLIC OINT BOTH EYES SCH (09:02)
[2021-09-15] MEDS: Ammonium Lactate 12% 1 APPLIC TUBE TOPICAL SCH (09:03)
[2021-09-15] MEDS: Triamcinolone 0.025% OINT 15 GM TUBE TOPICAL SCH (09:04)
[2021-09-15] MEDS: Lidocaine 1% MPF 5 ML VIAL SCH (09:18)
[2021-09-15] MEDS: cefTRIAXone VIAL 1,000 MG VIAL IM SCH (09:18)
[2021-09-15 10:50] LABS: CO2 Carbon Dioxide 22 mmol/L (22-32); Calcium 10.1 mg/dL (8.6-10.3); Chloride 100 mmol/L (101-111); Sodium 131 mmol/L (135-145)
[2021-09-15 10:56] LABS: Blood Urea Nitrogen 20 mg/dL (6-24); Glucose 467 mg/dL (70-100)
[2021-09-15 11:31] LABS: Anion Gap 9 mmol/L (2-11)
[2021-09-15] MEDS: Benzocaine/Menthol LOZ PO PRN (12:54)
[2021-09-15] MEDS: Al Hydrox/Mg Hydrox/Simet LIQ 30 ML UDC PO PRN (18:52)
[2021-09-15] MEDS: Senna TAB 8.6 mg TAB PO SCH (21:34)
[2021-09-15] MEDS: Insulin GLARGINE 100 un/ml 10 ml VIAL SUBCUT SCH (21:40)
[2021-09-15] MEDS: Dextran 70/Hypromellose Tears Eye Drops 15 ml BTL (for Artificials Tears) BOTH EYES PRN (22:02)
[2021-09-16] MEDS: Ammonium Lactate 12% 1 APPLIC TUBE TOPICAL SCH ×3 (01:49→21:01)
[2021-09-16] MEDS: Benzocaine/Menthol LOZ PO PRN ×3 (02:07→17:44)
[2021-09-16 07:47] LABS: ABS Basophils 0.1 10^3/ul (0-0.2); ABS Eosinophils 0.3 10^3/ul (0-0.6); ABS Lymphocytes 2.4 10^3/ul (1.0-4.8); ABS Monocytes 0.8 10^3/ul (0-0.8); ABS Neutrophils 2.9 10^3/ul (1.5-7.7); Eosinophil % 4.3 %; Hematocrit 32 % (35-47); Hemoglobin 10.7 g/dL (12.0-16.0); Lymphocyte % 37.3 %; Mean Corpuscular HGB Conc 33 g/dL (31-36); Mean Corpuscular Hemoglobin 29 pg (27-31); Mean Corpuscular Volume 87 fL (80-97); Mean Platelet Volume 9.1 fL (7.4-10.4); Nucleated Red Blood Cells % 0.1; Platelet Count 313 10^3/uL (150-450); Red Blood Count 3.68 10^6 /uL (3.70-4.87); Red Cell Distribution Width 15 % (10-15); White Blood Count 6.5 10^3/uL (3.5-10.8)
[2021-09-16] MEDS: Meloxicam 7.5 mg TAB (NF) PO SCH (07:58)
[2021-09-16] MEDS: CMCS:Minocycline 50 mg CAP (NF) PO SCH (07:58)
[2021-09-16] MEDS: Triamcinolone 0.025% OINT 15 GM TUBE TOPICAL SCH (07:59)
[2021-09-16] MEDS: cefTRIAXone VIAL 1,000 MG VIAL IM SCH (11:01)
[2021-09-16] MEDS: Lidocaine 1% MPF 5 ML VIAL SCH (11:01)
[2021-09-16] MEDS: Senna TAB 8.6 mg TAB PO SCH (21:02)
[2021-09-16] MEDS: Insulin GLARGINE 100 un/ml 10 ml VIAL SUBCUT SCH (21:03)
[2021-09-17] MEDS: CMCS:Minocycline 50 mg CAP (NF) PO SCH (08:35)
[2021-09-17] MEDS: Meloxicam 7.5 mg TAB (NF) PO SCH (08:36)
[2021-09-17] MEDS: Dextran 70/Hypromellose Tears Eye Drops 15 ml BTL (for Artificials Tears) BOTH EYES PRN (08:40)
[2021-09-17] MEDS: Triamcinolone 0.025% OINT 15 GM TUBE TOPICAL SCH (08:42)
[2021-09-17] MEDS: Ammonium Lactate 12% 1 APPLIC TUBE TOPICAL SCH ×2 (08:49→21:01)
[2021-09-17] MEDS: Benzocaine/Menthol LOZ PO PRN ×2 (11:39→18:56)
[2021-09-17] MEDS: Al Hydrox/Mg Hydrox/Simet LIQ 30 ML UDC PO PRN (19:43)
[2021-09-17] MEDS: Insulin GLARGINE 100 un/ml 10 ml VIAL SUBCUT SCH (20:58)
[2021-09-17] MEDS: Senna TAB 8.6 mg TAB PO SCH (21:06)
[2021-09-17] MEDS: guaiFENesin 100 mg/5 ml LIQ unit dose cup PO PRN (21:14)
[2021-09-18] MEDS: guaiFENesin 100 mg/5 ml LIQ unit dose cup PO PRN (05:53)
[2021-09-18] MEDS: Meloxicam 7.5 mg TAB (NF) PO SCH (08:05)
[2021-09-18] MEDS: Triamcinolone 0.025% OINT 15 GM TUBE TOPICAL SCH (08:07)
[2021-09-18] MEDS: CMCS:Minocycline 50 mg CAP (NF) PO SCH (08:07)
[2021-09-18] MEDS: Ammonium Lactate 12% 1 APPLIC TUBE TOPICAL SCH ×2 (08:07→21:03)
[2021-09-18] MEDS: Benzocaine/Menthol LOZ PO PRN (15:41)
[2021-09-18] MEDS: Senna TAB 8.6 mg TAB PO SCH (20:12)
[2021-09-18] MEDS: Insulin GLARGINE 100 un/ml 10 ml VIAL SUBCUT SCH (20:29)
[2021-09-18 21:09] LABS: Hematocrit 34 % (35-47); Hemoglobin 11.2 g/dL (12.0-16.0); Mean Corpuscular HGB Conc 33 g/dL (31-36); Mean Corpuscular Hemoglobin 29 pg (27-31); Mean Corpuscular Volume 87 fL (80-97); Mean Platelet Volume 8.7 fL (7.4-10.4); Platelet Count 376 10^3/uL (150-450); Red Blood Count 3.89 10^6 /uL (3.70-4.87); Red Cell Distribution Width 15 % (10-15); White Blood Count 8.1 10^3/uL (3.5-10.8)
[2021-09-18 21:22] LABS: ABS Basophils 0.1 10^3/ul (0-0.2); ABS Eosinophils 0.3 10^3/ul (0-0.6); ABS Lymphocytes 2.6 10^3/ul (1.0-4.8); ABS Monocytes 0.6 10^3/ul (0-0.8); ABS Neutrophils 4.4 10^3/ul (1.5-7.7); Eosinophil % 3.4 %; Nucleated Red Blood Cells % 0.1
[2021-09-18 21:25] LABS: Albumin 4.2 g/dL (3.2-5.2); Albumin/Globulin Ratio 1.4 (1-3); Calcium 9.7 mg/dL (8.6-10.3); Globulin 3.1 g/dL (2-4); Potassium 4.7 mmol/L (3.5-5.0); Total Bilirubin 0.2 mg/dL (0.2-1.0); Total Protein 7.3 g/dL (6.4-8.9); eGFR CKD-EPI 63.4 (>60)
[2021-09-18] MEDS: Al Hydrox/Mg Hydrox/Simet LIQ 30 ML UDC PO PRN (22:37)
[2021-09-19] MEDS: guaiFENesin 100 mg/5 ml LIQ unit dose cup PO PRN (06:32)
[2021-09-19] MEDS: CMCS:Minocycline 50 mg CAP (NF) PO SCH (11:08)
[2021-09-19] MEDS: Meloxicam 7.5 mg TAB (NF) PO SCH (11:09)
[2021-09-19] MEDS: Ammonium Lactate 12% 1 APPLIC TUBE TOPICAL SCH ×2 (11:12→21:32)
[2021-09-19] MEDS: Triamcinolone 0.025% OINT 15 GM TUBE TOPICAL SCH (11:12)
[2021-09-19] MEDS: Dextran 70/Hypromellose Tears Eye Drops 15 ml BTL (for Artificials Tears) BOTH EYES PRN (11:13)
[2021-09-19] MEDS: Benzocaine/Menthol LOZ PO PRN (13:53)
[2021-09-19 17:04] LABS: Urine Appearance Clear; Urine Bilirubin Negative (Negative); Urine Blood Negative (Negative); Urine Color Straw; Urine Glucose 3+(>=500 mg/dL) (Negative); Urine Ketones Negative (Negative); Urine Nitrite Negative (Negative); Urine Protein Negative (Negative); Urine Specific Gravity 1.009 (1.002-1.030); Urine Urobilinogen Negative (Negative)
[2021-09-19 17:26] LABS: ABS Basophils 0.1 10^3/ul (0-0.2); ABS Eosinophils 0.1 10^3/ul (0-0.6); ABS Lymphocytes 1.8 10^3/ul (1.0-4.8); ABS Monocytes 0.5 10^3/ul (0-0.8); ABS Neutrophils 4.1 10^3/ul (1.5-7.7); Eosinophil % 2.2 %; Hematocrit 33 % (35-47); Hemoglobin 10.6 g/dL (12.0-16.0); Lymphocyte % 27.7 %; Mean Corpuscular HGB Conc 32 g/dL (31-36); Mean Corpuscular Hemoglobin 29 pg (27-31); Mean Corpuscular Volume 89 fL (80-97); Mean Platelet Volume 8.3 fL (7.4-10.4); Nucleated Red Blood Cells % 0.1; Platelet Count 342 10^3/uL (150-450); Red Cell Distribution Width 15 % (10-15); White Blood Count 6.6 10^3/uL (3.5-10.8)
[2021-09-19 17:40] LABS: Albumin 4.1 g/dL (3.2-5.2); Calcium 9.8 mg/dL (8.6-10.3); Magnesium 1.6 mg/dL (1.9-2.7); Potassium 4.4 mmol/L (3.5-5.0); Total Bilirubin 0.2 mg/dL (0.2-1.0)
[2021-09-19 17:46] LABS: Albumin/Globulin Ratio 1.4 (1-3); Globulin 2.9 g/dL (2-4)
[2021-09-19] MEDS ORDERED: Magnesium Sulf 4 GM/100 ML IV 4,000 MG/100 ML BAG IVPB ONE (18:54)
[2021-09-19] MEDS ORDERED: Iodixanol (CONTRAST) 320 MG/ML 100 ML SDV IV ONE (19:01)
[2021-09-19] MEDS ORDERED: Magnesium Sulfate IV 3 GM in NS 0.9% 100 ml BAG 100 ML IVPB ONE (20:31)
[2021-09-19] MEDS ORDERED: NS 0.9% 500 ml BAG 500 ML IV ONE (20:32)
[2021-09-19] MEDS ORDERED: Insulin GLARGINE 100 un/ml 10 ml VIAL SUBCUT SCH (21:00)
[2021-09-19] MEDS: Senna TAB 8.6 mg TAB PO SCH (21:29)
[2021-09-19] MEDS: Insulin GLARGINE 100 un/ml 10 ml VIAL SUBCUT SCH (21:31)
[2021-09-19] MEDS: Enoxaparin 40 MG/0.4 ML SYR SUBCUT SCH (21:33)
[2021-09-20 07:20] LABS: ABS Basophils 0.1 10^3/ul (0-0.2); ABS Eosinophils 0.2 10^3/ul (0-0.6); ABS Lymphocytes 1.7 10^3/ul (1.0-4.8); ABS Monocytes 0.6 10^3/ul (0-0.8); ABS Neutrophils 3.8 10^3/ul (1.5-7.7); Eosinophil % 3.4 %; Hematocrit 29 % (35-47); Hemoglobin 9.7 g/dL (12.0-16.0); Lymphocyte % 26.5 %; Mean Corpuscular HGB Conc 33 g/dL (31-36); Mean Corpuscular Hemoglobin 29 pg (27-31); Mean Corpuscular Volume 87 fL (80-97); Mean Platelet Volume 8.5 fL (7.4-10.4); Platelet Count 332 10^3/uL (150-450); Red Blood Count 3.35 10^6 /uL (3.70-4.87); Red Cell Distribution Width 15 % (10-15); White Blood Count 6.4 10^3/uL (3.5-10.8)
[2021-09-20 07:36] LABS: Calcium 8.6 mg/dL (8.6-10.3); Magnesium 1.8 mg/dL (1.9-2.7); Potassium 4.6 mmol/L (3.5-5.0); eGFR CKD-EPI 95.1 (>60)
[2021-09-20] MEDS: Meloxicam 7.5 mg TAB (NF) PO SCH (08:23)
[2021-09-20] MEDS: CMCS:Minocycline 50 mg CAP (NF) PO SCH (09:17)
[2021-09-20] MEDS: Dextran 70/Hypromellose Tears Eye Drops 15 ml BTL (for Artificials Tears) BOTH EYES PRN (09:19)
[2021-09-20] MEDS: Triamcinolone 0.025% OINT 15 GM TUBE TOPICAL SCH (09:20)
[2021-09-20] MEDS: Ammonium Lactate 12% 1 APPLIC TUBE TOPICAL SCH ×3 (09:21→22:44)
[2021-09-20] MEDS: Al Hydrox/Mg Hydrox/Simet LIQ 30 ML UDC PO PRN (09:22)
[2021-09-20] MEDS: Benzocaine/Menthol LOZ PO PRN ×2 (09:22→16:45)
[2021-09-20] MEDS: CMCS: SitaGLIPtin 100 mg TAB (NF) PO SCH (11:59)
[2021-09-20] MEDS: guaiFENesin 100 mg/5 ml LIQ unit dose cup PO PRN (19:24)
[2021-09-20] MEDS: Insulin GLARGINE 100 un/ml 10 ml VIAL SUBCUT SCH (22:28)
[2021-09-20] MEDS: Enoxaparin 40 MG/0.4 ML SYR SUBCUT SCH (22:29)
[2021-09-20] MEDS: Senna TAB 8.6 mg TAB PO SCH (22:37)
[2021-09-21 08:01] LABS: ABS Basophils 0.1 10^3/ul (0-0.2); ABS Eosinophils 0.2 10^3/ul (0-0.6); ABS Lymphocytes 1.6 10^3/ul (1.0-4.8); ABS Monocytes 0.7 10^3/ul (0-0.8); ABS Neutrophils 5.6 10^3/ul (1.5-7.7); Eosinophil % 2.5 %; Hematocrit 32 % (35-47); Hemoglobin 10.5 g/dL (12.0-16.0); Lymphocyte % 19.3 %; Mean Corpuscular HGB Conc 33 g/dL (31-36); Mean Corpuscular Hemoglobin 29 pg (27-31); Mean Corpuscular Volume 87 fL (80-97); Mean Platelet Volume 8.2 fL (7.4-10.4); Platelet Count 377 10^3/uL (150-450); Red Blood Count 3.62 10^6 /uL (3.70-4.87); Red Cell Distribution Width 15 % (10-15); White Blood Count 8.2 10^3/uL (3.5-10.8)
[2021-09-21 08:16] LABS: Magnesium 1.9 mg/dL (1.9-2.7); Potassium 4.9 mmol/L (3.5-5.0); eGFR CKD-EPI 88.2 (>60)
[2021-09-21] MEDS: CMCS: SitaGLIPtin 100 mg TAB (NF) PO SCH (08:42)
[2021-09-21] MEDS: CMCS:Minocycline 50 mg CAP (NF) PO SCH (08:42)
[2021-09-21] MEDS: Ammonium Lactate 12% 1 APPLIC TUBE TOPICAL SCH (08:47)
[2021-09-21] MEDS: Benzocaine/Menthol LOZ PO PRN (08:49)
[2021-09-21] MEDS: Triamcinolone 0.025% OINT 15 GM TUBE TOPICAL SCH (09:34)
[2021-09-21] MEDS: Meloxicam 7.5 mg TAB (NF) PO SCH (12:34)
[2021-09-21] MEDS: Senna TAB 8.6 mg TAB PO SCH (21:06)
[2021-09-21] MEDS: Dextran 70/Hypromellose Tears Eye Drops 15 ml BTL (for Artificials Tears) BOTH EYES PRN (21:13)
[2021-09-21] MEDS: Enoxaparin 40 MG/0.4 ML SYR SUBCUT SCH (21:15)
[2021-09-21] MEDS: Insulin GLARGINE 100 un/ml 10 ml VIAL SUBCUT SCH (21:15)
[2021-09-21] MEDS: guaiFENesin 100 mg/5 ml LIQ unit dose cup PO PRN (21:17)
[2021-09-22] MEDS: Meloxicam 7.5 mg TAB (NF) PO SCH (10:11)
[2021-09-22] MEDS: CMCS:Minocycline 50 mg CAP (NF) PO SCH (10:12)
[2021-09-22] MEDS: CMCS: SitaGLIPtin 100 mg TAB (NF) PO SCH (10:12)
[2021-09-22] MEDS: Ammonium Lactate 12% 1 APPLIC TUBE TOPICAL SCH ×3 (10:17→22:01)
[2021-09-22] MEDS: Triamcinolone 0.025% OINT 15 GM TUBE TOPICAL SCH (13:40)
[2021-09-22] MEDS: Benzocaine/Menthol LOZ PO PRN (16:34)
[2021-09-22] MEDS: Enoxaparin 40 MG/0.4 ML SYR SUBCUT SCH (21:43)
[2021-09-22] MEDS: Insulin GLARGINE 100 un/ml 10 ml VIAL SUBCUT SCH (21:43)
[2021-09-22] MEDS: Senna TAB 8.6 mg TAB PO SCH (21:58)
[2021-09-22] MEDS: Al Hydrox/Mg Hydrox/Simet LIQ 30 ML UDC PO PRN (22:00)
[2021-09-23] MEDS: CMCS:Minocycline 50 mg CAP (NF) PO SCH (08:38)
[2021-09-23] MEDS: Dextran 70/Hypromellose Tears Eye Drops 15 ml BTL (for Artificials Tears) BOTH EYES PRN (08:39)
[2021-09-23] MEDS: Ammonium Lactate 12% 1 APPLIC TUBE TOPICAL SCH ×2 (09:32→21:42)
[2021-09-23] MEDS: Triamcinolone 0.025% OINT 15 GM TUBE TOPICAL SCH (09:33)
[2021-09-23] MEDS: Meloxicam 7.5 mg TAB (NF) PO SCH (09:33)
[2021-09-23] MEDS: guaiFENesin 100 mg/5 ml LIQ unit dose cup PO PRN (15:23)
[2021-09-23] MEDS: Insulin GLARGINE 100 un/ml 10 ml VIAL SUBCUT SCH (21:32)
[2021-09-23] MEDS: Enoxaparin 40 MG/0.4 ML SYR SUBCUT SCH (21:33)
[2021-09-23] MEDS: Senna TAB 8.6 mg TAB PO SCH (21:41)
[2021-09-23] MEDS: Benzocaine/Menthol LOZ PO PRN (21:43)
[2021-09-24] MEDS: Meloxicam 7.5 mg TAB (NF) PO SCH (08:27)
[2021-09-24] MEDS: Triamcinolone 0.025% OINT 15 GM TUBE TOPICAL SCH (08:30)
[2021-09-24] MEDS: Ammonium Lactate 12% 1 APPLIC TUBE TOPICAL SCH ×2 (08:31→21:26)
[2021-09-24] MEDS: CMCS:Minocycline 50 mg CAP (NF) PO SCH (08:32)
[2021-09-24] MEDS: Senna TAB 8.6 mg TAB PO SCH (21:27)
[2021-09-24] MEDS: guaiFENesin 100 mg/5 ml LIQ unit dose cup PO PRN (21:27)
[2021-09-24] MEDS: Enoxaparin 40 MG/0.4 ML SYR SUBCUT SCH (21:52)
[2021-09-24] MEDS: Insulin GLARGINE 100 un/ml 10 ml VIAL SUBCUT SCH (21:54)
[2021-09-25] MEDS: Ammonium Lactate 12% 1 APPLIC TUBE TOPICAL SCH ×2 (10:12→21:08)
[2021-09-25] MEDS: Triamcinolone 0.025% OINT 15 GM TUBE TOPICAL SCH (10:12)
[2021-09-25] MEDS: Meloxicam 7.5 mg TAB (NF) PO SCH (10:13)
[2021-09-25] MEDS: CMCS:Minocycline 50 mg CAP (NF) PO SCH (10:13)
[2021-09-25] MEDS: Senna TAB 8.6 mg TAB PO SCH (20:34)
[2021-09-25] MEDS: Enoxaparin 40 MG/0.4 ML SYR SUBCUT SCH (20:40)
[2021-09-25] MEDS: Insulin GLARGINE 100 un/ml 10 ml VIAL SUBCUT SCH (20:43)
[2021-09-26] MEDS: CMCS:Minocycline 50 mg CAP (NF) PO SCH (10:01)
[2021-09-26] MEDS: Meloxicam 7.5 mg TAB (NF) PO SCH (10:02)
[2021-09-26] MEDS: Triamcinolone 0.025% OINT 15 GM TUBE TOPICAL SCH (10:04)
[2021-09-26] MEDS: Ammonium Lactate 12% 1 APPLIC TUBE TOPICAL SCH ×3 (10:04→21:09)
[2021-09-26] MEDS: Insulin GLARGINE 100 un/ml 10 ml VIAL SUBCUT SCH (21:05)
[2021-09-26] MEDS: Enoxaparin 40 MG/0.4 ML SYR SUBCUT SCH (21:06)
[2021-09-26] MEDS: Senna TAB 8.6 mg TAB PO SCH (21:12)
[2021-09-27] MEDS: Dextran 70/Hypromellose Tears Eye Drops 15 ml BTL (for Artificials Tears) BOTH EYES PRN (09:57)
[2021-09-27] MEDS: Triamcinolone 0.025% OINT 15 GM TUBE TOPICAL SCH (09:58)
[2021-09-27] MEDS: Meloxicam 7.5 mg TAB (NF) PO SCH (09:58)
[2021-09-27] MEDS: Ammonium Lactate 12% 1 APPLIC TUBE TOPICAL SCH ×2 (10:00→20:37)
[2021-09-27] MEDS: CMCS:Minocycline 50 mg CAP (NF) PO SCH (10:16)
[2021-09-27] MEDS: Benzocaine/Menthol LOZ PO PRN (12:59)
[2021-09-27] MEDS: guaiFENesin 100 mg/5 ml LIQ unit dose cup PO PRN (18:31)
[2021-09-27] MEDS: Senna TAB 8.6 mg TAB PO SCH (20:38)
[2021-09-27] MEDS: Enoxaparin 40 MG/0.4 ML SYR SUBCUT SCH (20:38)
[2021-09-27] MEDS: Insulin GLARGINE 100 un/ml 10 ml VIAL SUBCUT SCH (20:48)
[2021-09-28] MEDS: CMCS:Minocycline 50 mg CAP (NF) PO SCH (08:18)
[2021-09-28] MEDS: Meloxicam 7.5 mg TAB (NF) PO SCH (08:19)
[2021-09-28] MEDS: Triamcinolone 0.025% OINT 15 GM TUBE TOPICAL SCH (08:20)
[2021-09-28] MEDS: Ammonium Lactate 12% 1 APPLIC TUBE TOPICAL SCH ×2 (08:23→22:14)
[2021-09-28] MEDS: Benzocaine/Menthol LOZ PO PRN (12:35)
[2021-09-28 20:45] LABS: Glucose Confirmatory 472 mg/dL (70-100)
[2021-09-28] MEDS: Insulin GLARGINE 100 un/ml 10 ml VIAL SUBCUT SCH (21:08)
[2021-09-28] MEDS: Senna TAB 8.6 mg TAB PO SCH (22:06)
[2021-09-28] MEDS: Enoxaparin 40 MG/0.4 ML SYR SUBCUT SCH (22:07)
[2021-09-28] MEDS: guaiFENesin 100 mg/5 ml LIQ unit dose cup PO PRN (23:32)
[2021-09-29] MEDS: CMCS:Minocycline 50 mg CAP (NF) PO SCH (11:34)
[2021-09-29] MEDS: Triamcinolone 0.025% OINT 15 GM TUBE TOPICAL SCH (11:34)
[2021-09-29] MEDS: Meloxicam 7.5 mg TAB (NF) PO SCH (11:36)
[2021-09-29] MEDS: guaiFENesin 100 mg/5 ml LIQ unit dose cup PO PRN (11:37)
[2021-09-29] MEDS: Ammonium Lactate 12% 1 APPLIC TUBE TOPICAL SCH ×2 (11:38→20:49)
[2021-09-29] MEDS: Lidocaine 4% GEL 10 GM TUBE TOPICAL PRN (20:49)
[2021-09-29] MEDS: Senna TAB 8.6 mg TAB PO SCH (20:50)
[2021-09-29] MEDS: Enoxaparin 40 MG/0.4 ML SYR SUBCUT SCH (21:17)
[2021-09-29] MEDS: Insulin GLARGINE 100 un/ml 10 ml VIAL SUBCUT SCH (21:17)
[2021-09-30] MEDS: Ammonium Lactate 12% 1 APPLIC TUBE TOPICAL SCH ×2 (07:21→19:42)
[2021-09-30] MEDS: CMCS:Minocycline 50 mg CAP (NF) PO SCH (10:12)
[2021-09-30] MEDS: Meloxicam 7.5 mg TAB (NF) PO SCH (10:12)
[2021-09-30] MEDS: Triamcinolone 0.025% OINT 15 GM TUBE TOPICAL SCH (10:15)
[2021-09-30] MEDS: Lidocaine 4% GEL 10 GM TUBE TOPICAL PRN (13:05)
[2021-09-30] MEDS: Enoxaparin 40 MG/0.4 ML SYR SUBCUT SCH (21:02)
[2021-09-30] MEDS: Insulin GLARGINE 100 un/ml 10 ml VIAL SUBCUT SCH (21:02)
[2021-09-30] MEDS: Senna TAB 8.6 mg TAB PO SCH (21:03)
[2021-09-30] MEDS: Dextran 70/Hypromellose Tears Eye Drops 15 ml BTL (for Artificials Tears) BOTH EYES PRN (21:37)
[2021-10-01] MEDS: Meloxicam 7.5 mg TAB (NF) PO SCH (10:51)
[2021-10-01] MEDS: CMCS:Minocycline 50 mg CAP (NF) PO SCH (10:51)
[2021-10-01] MEDS: Triamcinolone 0.025% OINT 15 GM TUBE TOPICAL SCH (10:54)
[2021-10-01] MEDS: Ammonium Lactate 12% 1 APPLIC TUBE TOPICAL SCH ×2 (10:55→20:51)
[2021-10-01] MEDS: Lidocaine 4% GEL 10 GM TUBE TOPICAL PRN (11:22)
[2021-10-01] MEDS: guaiFENesin 100 mg/5 ml LIQ unit dose cup PO PRN (17:02)
[2021-10-01] MEDS: Benzocaine/Menthol LOZ PO PRN (18:47)
[2021-10-01] MEDS: Insulin GLARGINE 100 un/ml 10 ml VIAL SUBCUT SCH (20:46)
[2021-10-01] MEDS: Enoxaparin 40 MG/0.4 ML SYR SUBCUT SCH (20:47)
[2021-10-01] MEDS: Senna TAB 8.6 mg TAB PO SCH (20:50)
[2021-10-01] MEDS: Dextran 70/Hypromellose Tears Eye Drops 15 ml BTL (for Artificials Tears) BOTH EYES PRN (21:48)
[2021-10-02] MEDS: Meloxicam 7.5 mg TAB (NF) PO SCH (11:13)
[2021-10-02] MEDS: Triamcinolone 0.025% OINT 15 GM TUBE TOPICAL SCH (11:13)
[2021-10-02] MEDS: CMCS:Minocycline 50 mg CAP (NF) PO SCH (11:13)
[2021-10-02] MEDS: Ammonium Lactate 12% 1 APPLIC TUBE TOPICAL SCH ×2 (11:14→20:25)
[2021-10-02] MEDS: Benzocaine/Menthol LOZ PO PRN (11:17)
[2021-10-02] MEDS: Insulin GLARGINE 100 un/ml 10 ml VIAL SUBCUT SCH (20:19)
[2021-10-02] MEDS: Enoxaparin 40 MG/0.4 ML SYR SUBCUT SCH (20:20)
[2021-10-02] MEDS: Senna TAB 8.6 mg TAB PO SCH (20:24)
[2021-10-03] MEDS: Ammonium Lactate 12% 1 APPLIC TUBE TOPICAL SCH ×2 (09:09→19:10)
[2021-10-03] MEDS: CMCS:Minocycline 50 mg CAP (NF) PO SCH (10:26)
[2021-10-03] MEDS: Triamcinolone 0.025% OINT 15 GM TUBE TOPICAL SCH (10:28)
[2021-10-03] MEDS: Meloxicam 7.5 mg TAB (NF) PO SCH (10:28)
[2021-10-03] MEDS: guaiFENesin 100 mg/5 ml LIQ unit dose cup PO PRN (10:29)
[2021-10-03 20:56] LABS: Glucose Confirmatory 409 mg/dL (70-100)
[2021-10-03] MEDS: Senna TAB 8.6 mg TAB PO SCH (21:12)
[2021-10-03] MEDS: Insulin GLARGINE 100 un/ml 10 ml VIAL SUBCUT SCH (21:15)
[2021-10-04] MEDS: Ammonium Lactate 12% 1 APPLIC TUBE TOPICAL SCH ×2 (09:08→20:29)
[2021-10-04] MEDS: Meloxicam 7.5 mg TAB (NF) PO SCH (09:13)
[2021-10-04] MEDS: CMCS:Minocycline 50 mg CAP (NF) PO SCH (09:13)
[2021-10-04] MEDS: Triamcinolone 0.025% OINT 15 GM TUBE TOPICAL SCH (09:13)
[2021-10-04] MEDS: Insulin GLARGINE 100 un/ml 10 ml VIAL SUBCUT SCH (20:24)
[2021-10-04] MEDS: Senna TAB 8.6 mg TAB PO SCH (20:28)
[2021-10-05 09:18] VITALS: BP 132/90
[2021-10-05] MEDS: CMCS:Minocycline 50 mg CAP (NF) PO SCH (10:38)
[2021-10-05] MEDS: Meloxicam 7.5 mg TAB (NF) PO SCH (10:38)
== END 2021-10-05 11:40 | disposition home or self-care (01) | DRG 885 ==
LOC: ED 12:59 → EDHOLD 09-09 11:01 → BSU 09-09 13:58
PROVIDERS: ADMIT Psychiatry & Neurology Psychiatry; ATTEND Psychiatry & Neurology Psychiatry

== ENCOUNTER 2022-04-27 14:39 | Inpatient (IN) ==
[2022-04-27] MEDS ORDERED: Haloperidol 5 mg/ml SDV IV/IM 5 MG/ML AMP ONE (14:52)
[2022-04-27] MEDS ORDERED: Haloperidol 5 mg/ml SDV IV/IM 5 MG/ML AMP IM ONE ×2 (15:26)
[2022-04-27] MEDS ORDERED: LORazepam 2 mg VIAL 1 ml IM ONE (15:27)
[2022-04-27] MEDS ORDERED: Lorazepam PYXIS KEY PRN (15:27)
[2022-04-27 15:58] LABS: ABS Basophils 0.1 10^3/ul (0-0.2); ABS Eosinophils 0.1 10^3/ul (0-0.6); ABS Lymphocytes 1.7 10^3/ul (1.0-4.8); ABS Monocytes 0.6 10^3/ul (0-0.8); ABS Neutrophils 5.5 10^3/ul (1.5-7.7); Hematocrit 32 % (35-47); Hemoglobin 10.3 g/dL (12.0-16.0); Lymphocyte % 20.8 %; Mean Corpuscular HGB Conc 33 g/dL (31-36); Mean Corpuscular Hemoglobin 28 pg (27-31); Mean Corpuscular Volume 86 fL (80-97); Mean Platelet Volume 9.1 fL (7.4-10.4); Platelet Count 264 10^3/uL (150-450); Red Blood Count 3.72 10^6 /uL (3.70-4.87); Red Cell Distribution Width 14 % (10-15)
[2022-04-27 16:43] LABS: Albumin 3.8 g/dL (3.2-5.2); Albumin/Globulin Ratio 1.5 (1-3); Calcium 9.4 mg/dL (8.6-10.3); Globulin 2.5 g/dL (2-4); Potassium 3.8 mmol/L (3.5-5.0); Total Bilirubin 0.5 mg/dL (0.2-1.0); Total Protein 6.3 g/dL (6.4-8.9); eGFR CKD-EPI 52.8 (>60)
[2022-04-27 16:47] LABS: HCG Pregnancy 3.01 mIU/mL
[2022-04-27 16:56] LABS: TSH Ultra Thyroid Stim Horm 1.03 mcIU/mL (0.34-5.60)
[2022-04-28 01:20] LABS: Urine Appearance Clear; Urine Color Yellow; Urine Specific Gravity 1.029 (1.002-1.030); Urine pH 5.5 (5.0-9.0)
[2022-04-28 01:21] LABS: Urine Bilirubin Negative (Negative); Urine Blood Negative (Negative); Urine Glucose 2+ (500mg/dL) (Negative); Urine Ketones 1+ (15mg/dL) (Negative); Urine Nitrite Negative (Negative); Urine Protein Trace (Negative); Urine Urobilinogen 0.2 (Negative) (Negative)
[2022-04-28 01:26] LABS: Urine Bacteria 1+ (Absent); Urine Benzodiazepine Screen None Detected (None Detect); Urine Cannabinoids Screen Presumptive Positive (None Detect); Urine Opiates Screen None Detected (None Detect); Urine Red Blood Cell Trace(0-2/hpf) (Absent); Urine Squamous Epithelial Cell Present (Absent); Urine White Blood Cell Trace(0-5/hpf) (Absent)
[2022-04-28] MEDS: Nicotine GUM 2MG FRUIT FLAVOR PO PRN (07:41)
[2022-04-28] MEDS: Triamcinolone 0.025% OINT 15 GM TUBE TOPICAL SCH ×2 (14:31→21:05)
[2022-04-28] MEDS: Senna TAB 8.6 mg TAB PO SCH (21:05)
[2022-04-28] MEDS: Ammonium Lactate 12% 1 APPLIC TUBE TOPICAL SCH (21:05)
[2022-04-28] MEDS: Dextran 70/Hypromellose Tears Eye Drops 15 ml BTL (for Artificials Tears) BOTH EYES PRN (21:12)
[2022-04-29] MEDS: Nicotine GUM 2MG FRUIT FLAVOR PO PRN ×4 (03:55→16:11)
[2022-04-29] MEDS: Multivitamins/Minerals TAB PO SCH (08:01)
[2022-04-29] MEDS: Ammonium Lactate 12% 1 APPLIC TUBE TOPICAL SCH ×3 (08:02→23:39)
[2022-04-29] MEDS: CMCS: Meloxicam 7.5 mg TAB (NF) PO SCH (08:02)
[2022-04-29] MEDS: Triamcinolone 0.025% OINT 15 GM TUBE TOPICAL SCH ×3 (08:03→23:39)
[2022-04-29 08:57] LABS: HDL Cholesterol 45.4 mg/dL
[2022-04-29] MEDS ORDERED: Triamcinolone 0.025% OINT 15 GM TUBE TOPICAL SCH (09:00)
[2022-04-29] MEDS ORDERED: Dextrose 50% Syringe 50 ml 25 GM/50 ML SYRINGE IV PUSH PRN ×2 (12:38→18:48)
[2022-04-29] MEDS: Senna TAB 8.6 mg TAB PO SCH (20:08)
[2022-04-29] MEDS ORDERED: Insulin GLARGINE 100 un/ml 10 ml VIAL SUBCUT SCH (21:00)
[2022-04-30] MEDS: Multivitamins/Minerals TAB PO SCH (08:58)
[2022-04-30] MEDS: CMCS: Meloxicam 7.5 mg TAB (NF) PO SCH (09:01)
[2022-04-30] MEDS: Triamcinolone 0.025% OINT 15 GM TUBE TOPICAL SCH ×4 (09:03→20:44)
[2022-04-30] MEDS: Ammonium Lactate 12% 1 APPLIC TUBE TOPICAL SCH ×2 (09:50→20:46)
[2022-04-30] MEDS: Senna TAB 8.6 mg TAB PO SCH (20:40)
[2022-04-30] MEDS ORDERED: Insulin GLARGINE 100 un/ml 10 ml VIAL SUBCUT SCH (21:00)
[2022-05-01] MEDS: Al Hydrox/Mg Hydrox/Simet LIQ 30 ML UDC PO PRN (05:55)
[2022-05-01] MEDS: Benzocaine/Menthol LOZ PO PRN (05:59)
[2022-05-01] MEDS: Multivitamins/Minerals TAB PO SCH (07:52)
[2022-05-01] MEDS: CMCS: Meloxicam 7.5 mg TAB (NF) PO SCH (07:53)
[2022-05-01] MEDS: Ammonium Lactate 12% 1 APPLIC TUBE TOPICAL SCH ×2 (09:26→23:07)
[2022-05-01] MEDS: Triamcinolone 0.025% OINT 15 GM TUBE TOPICAL SCH ×3 (09:27→23:07)
[2022-05-01] MEDS: Senna TAB 8.6 mg TAB PO SCH (21:32)
[2022-05-01] MEDS: Insulin GLARGINE 100 un/ml 10 ml VIAL SUBCUT SCH (21:33)
[2022-05-02] MEDS: Multivitamins/Minerals TAB PO SCH (07:45)
[2022-05-02] MEDS: CMCS: Meloxicam 7.5 mg TAB (NF) PO SCH (07:47)
[2022-05-02] MEDS: Ammonium Lactate 12% 1 APPLIC TUBE TOPICAL SCH ×2 (07:48→22:08)
[2022-05-02] MEDS: Triamcinolone 0.025% OINT 15 GM TUBE TOPICAL SCH ×3 (07:49→22:07)
[2022-05-02] MEDS: Nicotine GUM 2MG FRUIT FLAVOR PO PRN ×3 (07:50→15:54)
[2022-05-02] MEDS: Benzocaine/Menthol LOZ PO PRN ×2 (10:33→15:54)
[2022-05-02] MEDS ORDERED: guaiFENesin DM SUGAR FREE 100 MG/10 MG 5 ML UDC PO PRN (13:29)
[2022-05-02] MEDS: Dextran 70/Hypromellose Tears Eye Drops 15 ml BTL (for Artificials Tears) BOTH EYES PRN (15:55)
[2022-05-02] MEDS: Al Hydrox/Mg Hydrox/Simet LIQ 30 ML UDC PO PRN (17:52)
[2022-05-02] MEDS: Senna TAB 8.6 mg TAB PO SCH (22:08)
[2022-05-02] MEDS: Insulin GLARGINE 100 un/ml 10 ml VIAL SUBCUT SCH (22:10)
[2022-05-03] MEDS: Benzocaine/Menthol LOZ PO PRN ×3 (00:46→21:52)
[2022-05-03] MEDS: Al Hydrox/Mg Hydrox/Simet LIQ 30 ML UDC PO PRN ×2 (07:18→16:18)
[2022-05-03] MEDS: Ammonium Lactate 12% 1 APPLIC TUBE TOPICAL SCH ×3 (07:19→21:56)
[2022-05-03] MEDS: Triamcinolone 0.025% OINT 15 GM TUBE TOPICAL SCH ×4 (07:20→21:55)
[2022-05-03] MEDS: Multivitamins/Minerals TAB PO SCH (07:21)
[2022-05-03] MEDS: CMCS: Meloxicam 7.5 mg TAB (NF) PO SCH (07:28)
[2022-05-03] MEDS: Nicotine GUM 2MG FRUIT FLAVOR PO PRN (16:18)
[2022-05-03] MEDS: Senna TAB 8.6 mg TAB PO SCH (21:14)
[2022-05-03] MEDS: Insulin GLARGINE 100 un/ml 10 ml VIAL SUBCUT SCH (21:50)
[2022-05-04] MEDS: Multivitamins/Minerals TAB PO SCH (09:03)
[2022-05-04] MEDS: Triamcinolone 0.025% OINT 15 GM TUBE TOPICAL SCH ×3 (09:09→22:47)
[2022-05-04] MEDS: Ammonium Lactate 12% 1 APPLIC TUBE TOPICAL SCH ×2 (09:10→22:47)
[2022-05-04] MEDS: CMCS: Meloxicam 7.5 mg TAB (NF) PO SCH (09:15)
[2022-05-04] MEDS: Nicotine GUM 2MG FRUIT FLAVOR PO PRN ×2 (10:39→13:27)
[2022-05-04] MEDS: Benzocaine/Menthol LOZ PO PRN (10:39)
[2022-05-04] MEDS ORDERED: Insulin GLARGINE 100 un/ml 10 ml VIAL SUBCUT ONE (16:18)
[2022-05-04] MEDS ORDERED: Dextrose 50% Syringe 50 ml 25 GM/50 ML SYRINGE IV PUSH PRN (16:20)
[2022-05-04 18:00] LABS: ABS Eosinophils 0.1 10^3/ul (0-0.6); ABS Monocytes 0.7 10^3/ul (0-0.8); ABS Neutrophils 5.2 10^3/ul (1.5-7.7); Eosinophil % 1.6 %; Hematocrit 35 % (35-47); Hemoglobin 11.6 g/dL (12.0-16.0); Lymphocyte % 24.7 %; Mean Corpuscular HGB Conc 33 g/dL (31-36); Mean Corpuscular Hemoglobin 30 pg (27-31); Mean Corpuscular Volume 88 fL (80-97); Mean Platelet Volume 8.7 fL (7.4-10.4); Nucleated Red Blood Cells % 0.1; Platelet Count 351 10^3/uL (150-450); Red Blood Count 3.92 10^6 /uL (3.70-4.87); Red Cell Distribution Width 14 % (10-15)
[2022-05-04 18:26] LABS: CO2 Carbon Dioxide 29 mmol/L (22-32); Calcium 9.3 mg/dL (8.6-10.3); Chloride 101 mmol/L (101-111); Sodium 136 mmol/L (135-145)
[2022-05-04 18:32] LABS: Blood Urea Nitrogen 18 mg/dL (6-24); C Reactive Protein 2.86 mg/L (<8.01); Glucose 274 mg/dL (70-100); eGFR CKD-EPI 74.4 (>60)
[2022-05-04 18:45] LABS: Anion Gap 6 mmol/L (2-11)
[2022-05-04 19:27] LABS: Potassium, Whole Blood 4.7 mmol/L (3.4-4.5)
[2022-05-04 19:56] LABS: Magnesium 1.9 mg/dL (1.9-2.7); Potassium Redraw 4.8 mmol/L (3.5-5.0)
[2022-05-04] MEDS ORDERED: Insulin GLARGINE 100 un/ml 10 ml VIAL SUBCUT SCH (21:00)
[2022-05-04] MEDS: Senna TAB 8.6 mg TAB PO SCH (22:43)
[2022-05-05] MEDS: Multivitamins/Minerals TAB PO SCH (08:30)
[2022-05-05] MEDS: Triamcinolone 0.025% OINT 15 GM TUBE TOPICAL SCH (08:34)
[2022-05-05] MEDS: Ammonium Lactate 12% 1 APPLIC TUBE TOPICAL SCH (08:34)
[2022-05-05] MEDS: CMCS: Meloxicam 7.5 mg TAB (NF) PO SCH (08:34)
[2022-05-05 08:51] VITALS: BP 144/101
[2022-05-05] MEDS: Dextran 70/Hypromellose Tears Eye Drops 15 ml BTL (for Artificials Tears) BOTH EYES PRN (09:25)
[2022-05-05] MEDS: Benzocaine/Menthol LOZ PO PRN (09:25)
[2022-05-05] MEDS: Nicotine GUM 2MG FRUIT FLAVOR PO PRN (09:27)
== END 2022-05-05 16:10 | disposition home or self-care (01) | DRG 885 ==
LOC: ED 14:39 → EDHOLD 04-28 01:22 → BSU 04-28 04:03
PROVIDERS: ADMIT Psychiatry & Neurology Psychiatry; ATTEND Psychiatry & Neurology Psychiatry

== ENCOUNTER 2023-08-20 13:04 | Inpatient (IN) ==
[2023-08-20 15:06] LABS: Urine Benzodiazepine Screen None Detected (None Detect); Urine Cannabinoids Screen None Detected (None Detect); Urine Opiates Screen None Detected (None Detect)
[2023-08-20 15:10] LABS: Acetaminophen < 15 mcg/mL; Alcohol, S < 13 mg/dL (<13); Salicylate < 2.50 mg/dL (<30)
[2023-08-20 15:11] LABS: ALT 18 U/L (7-52); AST 22 U/L (13-39); Albumin 3.7 g/dL (3.2-5.2); Albumin/Globulin Ratio 1.3 (1-3); Alkaline Phosphatase 69 U/L (35-149); Anion Gap 8 mmol/L (2-16); Blood Urea Nitrogen 14 mg/dL (6-24); CO2 Carbon Dioxide 23 mmol/L (22-32); Calcium 9.1 mg/dL (8.6-10.3); Chloride 104 mmol/L (101-111); Creatinine, Serum 1.19 mg/dL (0.51-0.95); Globulin 2.9 g/dL (2-4); Glucose 159 mg/dL (70-100); Potassium 4.1 mmol/L (3.5-5.0); Sodium 135 mmol/L (135-145); Total Bilirubin 0.3 mg/dL (0.2-1.0); Total Protein 6.6 g/dL (6.4-8.9); eGFR CKD-EPI 55.7 (>60)
[2023-08-20 15:22] LABS: Hematocrit 22.9 % (35-45); Hemoglobin 7.4 g/dL (11.5-14.3); Mean Corpuscular Hemoglobin 22.5 pg (27-33); Mean Corpuscular Hgb Conc 32.1 g/dL (31-36); Mean Corpuscular Volume 70.2 fL (80-97); Red Blood Count 3.26 10^6/uL (3.63-4.92); Red Cell Distribution Width 20.9 % (12-17); White Blood Count 12.6 10^3/uL (3.8-11.8)
[2023-08-20 15:24] LABS: TSH Ultra Thyroid Stim Horm 0.58 mcIU/mL (0.34-5.60)
[2023-08-20 15:53] LABS: ABS Basophils 0.2 10^3/uL (0.0-0.1); ABS Lymphocytes 1.3 10^3/uL (1.0-4.8); ABS Monocytes 1.2 10^3/uL (0.0-0.9); ABS Nucleated RBC 0.02 10^3/ul; Eosinophil % 0.2 %; Nucleated Red Blood Cells % 0.1 %/100WBC (0.0-0.8)
[2023-08-20] MEDS ORDERED: Al Hydrox/Mg Hydrox/Simet LIQ 30 ML UDC PO PRN (16:42)
[2023-08-20] MEDS ORDERED: Albuterol HFA INHALER 8 gm MDI INH PRN (16:54)
[2023-08-20] MEDS ORDERED: Triamcinolone 0.025% OINT 15 GM TUBE TOPICAL PRN (16:56)
[2023-08-20] MEDS ORDERED: diazePAM INJ CARPUJECT 5 MG/ML SYRINGE IM ONE ×2 (17:25→17:48)
[2023-08-20] MEDS ORDERED: diazePAM INJ CARPUJECT 5 MG/ML SYRINGE ONE ×2 (17:25→17:48)
[2023-08-20] MEDS ORDERED: Haloperidol 5 mg/ml SDV IV/IM 5 MG/ML AMP IM ONE ×2 (17:25→19:37)
[2023-08-20] MEDS ORDERED: Haloperidol 5 mg/ml SDV IV/IM 5 MG/ML AMP ONE (17:25)
[2023-08-21 07:59] LABS: HDL Cholesterol 46.6 mg/dL
[2023-08-21] MEDS: Vitamin THERAPEUTIC TAB PO SCH (10:42)
[2023-08-21] MEDS: Meloxicam 7.5 mg TAB (NF) PO SCH (10:43)
[2023-08-21] MEDS: SitaGLIPtin 25mg TAB (NF) 25 MG TAB PO SCH (10:43)
[2023-08-21] MEDS: CMCS: DAPAGLIFLOZIN 10 MG TAB (NF) PO SCH (10:44)
[2023-08-21] MEDS: Mometasone/Formoter 200/5 MDI INH SCH ×2 (10:45→10:46)
[2023-08-22] MEDS: CMCS: DAPAGLIFLOZIN 10 MG TAB (NF) PO SCH (09:14)
[2023-08-22] MEDS: SitaGLIPtin 25mg TAB (NF) 25 MG TAB PO SCH (09:15)
[2023-08-22] MEDS: Meloxicam 7.5 mg TAB (NF) PO SCH (09:22)
[2023-08-22] MEDS: Vitamin THERAPEUTIC TAB PO SCH (09:23)
[2023-08-22] MEDS: Mometasone/Formoter 200/5 MDI INH SCH ×2 (09:24→12:13)
[2023-08-22 10:19] VITALS: BP 150/92
== END 2023-08-22 16:00 | disposition home or self-care (01) | DRG 885 ==
LOC: ED 13:04 → EDHOLD 16:42 → BSU 20:01
PROVIDERS: ADMIT Psychiatry & Neurology Psychiatry; ATTEND Student in an Organized Health Care Education/Training Program

== ENCOUNTER 2024-03-12 16:08 | Inpatient (IN) ==
[2024-03-12 17:33] LABS: ABS Basophils 0.2 10^3/uL (0.0-0.1); ABS Eosinophils 0.1 10^3/uL (0.0-0.5); ABS Lymphocytes 1.5 10^3/uL (1.0-4.8); ABS Monocytes 0.6 10^3/uL (0.0-0.9); ABS Nucleated RBC 0.02 10^3/ul; Eosinophil % 0.9 %; Hematocrit 29.4 % (35-45); Hemoglobin 8.8 g/dL (11.5-14.3); Lymphocyte % 14.5 %; Mean Corpuscular Hemoglobin 20.3 pg (27-33); Mean Corpuscular Hgb Conc 30.1 g/dL (31-36); Mean Corpuscular Volume 67.5 fL (80-97); Mean Platelet Volume 7.5 fL (7.5-11.2); Nucleated Red Blood Cells % 0.1 %/100WBC (0.0-0.8); Platelet Count 704 10^3/uL (150-450); Red Blood Count 4.36 10^6/uL (3.63-4.92); Red Cell Distribution Width 19.6 % (12-17); White Blood Count 10.4 10^3/uL (3.8-11.8)
[2024-03-12 18:20] LABS: ALT 19 U/L (7-52); AST 22 U/L (13-39); Acetaminophen < 15 mcg/mL; Albumin 4.4 g/dL (3.2-5.2); Albumin/Globulin Ratio 1.4 (1-3); Alcohol, S < 13 mg/dL (<13); Alkaline Phosphatase 88 U/L (35-149); Anion Gap 7 mmol/L (2-16); Blood Urea Nitrogen 22 mg/dL (6-24); CO2 Carbon Dioxide 24 mmol/L (22-32); Calcium 9.6 mg/dL (8.6-10.3); Chloride 102 mmol/L (101-111); Creatinine, Serum 1.31 mg/dL (0.51-0.95); Globulin 3.1 g/dL (2-4); Glucose 215 mg/dL (70-100); Salicylate < 2.50 mg/dL (<30); Sodium 133 mmol/L (135-145); Total Bilirubin 0.3 mg/dL (0.2-1.0); Total Protein 7.5 g/dL (6.4-8.9); eGFR CKD-EPI 49.3 (>60)
[2024-03-12 18:34] LABS: TSH Ultra Thyroid Stim Horm 1.31 mcIU/mL (0.34-5.60)
[2024-03-12 19:24] LABS: Urine Appearance Turbid; Urine Bacteria Absent /HPF (Absent); Urine Bilirubin 1+ (Negative); Urine Blood Trace (Negative); Urine Color Light-Yellow; Urine Glucose 4+ (>=1000 mg/dL) (Negative); Urine Ketones Negative (Negative); Urine Nitrite Negative (Negative); Urine Protein Negative (Negative); Urine Red Blood Cell Trace(0-2/hpf) /HPF (0-Trace); Urine Squamous Epithelial Cell Present /HPF (Absent); Urine Urobilinogen Negative (Negative); Urine White Blood Cell 3+(>20/hpf) /HPF (0-Trace); Urine pH 5.5 (5.0-8.0)
[2024-03-12 19:34] LABS: Urine Benzodiazepine Screen None Detected (None Detect); Urine Cannabinoids Screen Presumptive Positive (None Detect); Urine Opiates Screen Presumptive Positive (None Detect)
[2024-03-12] MEDS ORDERED: ETODOLAC 300 MG PO PRN (22:21)
[2024-03-12] MEDS ORDERED: Albuterol HFA INHALER 8 gm MDI INH PRN (22:36)
[2024-03-12] MEDS ORDERED: Nicotine GUM 2MG FRUIT FLAVOR PO PRN (23:00)
[2024-03-12] MEDS: Triamcinolone 0.5% OINT 1 TUBE TOPICAL SCH (23:57)
[2024-03-13] MEDS: Ketorolac 10 mg TAB (NF) PO ONE (00:15)
[2024-03-13] MEDS: Ketorolac 10 mg TAB (NF) PO PRN (00:16)
[2024-03-13] MEDS: Mometasone/Formoter 200/5 MDI INH SCH (08:39)
[2024-03-13] MEDS: LoraTADine 10 mg TAB (NF) PO SCH (08:41)
[2024-03-13] MEDS: Vitamin THERAPEUTIC TAB PO SCH (08:41)
[2024-03-13] MEDS: Meloxicam 7.5 mg TAB (NF) PO SCH (08:42)
[2024-03-13] MEDS: DAPAGLIFLOZIN 10 MG TAB (NF) PO SCH (08:43)
[2024-03-13] MEDS: Senna TAB 8.6 mg TAB PO SCH (08:43)
[2024-03-13] MEDS: Empagliflozin 25 MG TAB PO SCH (08:54)
[2024-03-13] MEDS: Permethrin 5% CREAM 1 TUBE TOPICAL ONE (13:00)
[2024-03-13] MEDS: HYDROcodone/ACETAMIN 5/325 mg TAB PO PRN (14:28)
[2024-03-13] MEDS: Dextran 70/Hypromellose Tears Eye Drops 15 ml BTL (for Artificials Tears) BOTH EYES PRN (14:29)
[2024-03-13] MEDS: Haloperidol 5 mg/ml SDV IV/IM 5 MG/ML AMP ONE (17:33)
[2024-03-14 08:33] LABS: Albumin 3.4 g/dL (3.2-5.2); Albumin/Globulin Ratio 1.5 (1-3); Calcium 8.5 mg/dL (8.6-10.3); Creatinine, Serum 1.02 mg/dL (0.51-0.95); Globulin 2.2 g/dL (2-4); HDL Cholesterol 39.9 mg/dL; Potassium 4.9 mmol/L (3.5-5.0); Total Bilirubin 0.2 mg/dL (0.2-1.0); Total Protein 5.6 g/dL (6.4-8.9); eGFR CKD-EPI 66.6 (>60)
[2024-03-15] MEDS: Al Hydrox/Mg Hydrox/Simet LIQ 30 ML UDC PO PRN (12:32)
[2024-03-18 10:55] VITALS: BP 108/62
[2024-03-18 14:07] LABS: RPR Nonreactive (Nonreactive)
[2024-03-20 14:31] LABS: T.Pallidum TP-PA Positive (Negative)
== END 2024-03-18 13:06 | disposition home or self-care (01) | DRG 885 ==
LOC: ED 16:08 → BSU 22:18
PROVIDERS: ADMIT Psychiatry & Neurology Psychiatry; ATTEND Student in an Organized Health Care Education/Training Program